=== PATIENT | male | born 1955 | race Caucasian/White ===

== ENCOUNTER 2020-06-17 23:09 | Inpatient (IN) | payer OTHER ==
[~2020-06-17] VITALS: Ht 182.9 cm; Wt 129.8 kg
[2020-06-17 23:36] LABS: BASO # 0.1 x10^3/uL (0.0-0.2); BASO % 1 % (0-3); EOS # 0.5 x10^3/uL (0.0-0.7); EOS % 3 % (0-3); HEMATOCRIT 42.5 % (39.0-53.0); HEMOGLOBIN 14.8 g/dL (13.0-17.5); LYMPH # 4.3 x10^3/uL (1.0-4.8); LYMPH % 30 % (24-48); MEAN CORPUSCULAR HEMOGLOBIN 30 pg (25-35); MEAN CORPUSCULAR HGB CONC 35 g/dL (31-37); MEAN CORPUSCULAR VOLUME 87 fL (79-100); MONO # 0.7 x10^3/uL (0.0-1.1); MONO % 5 % (0-9); NEUT # 8.7 x10^3/uL (1.8-7.7); NEUT % 61 % (31-73); PLATELET COUNT 368 x10^3/uL (140-400); RED BLOOD COUNT 4.92 x10^6/uL (4.30-5.70); RED CELL DISTRIBUTION WIDTH 13.7 % (11.5-14.5); WHITE BLOOD COUNT 14.3 x10^3/uL (4.0-11.0)
[2020-06-17 23:44] LABS: CALCIUM 9.5 mg/dL (8.5-10.1); CREATININE 0.9 mg/dL (0.7-1.3); POTASSIUM 4.2 mmol/L (3.5-5.1)
[2020-06-17] MEDS ORDERED: IV NORMAL SALINE 1000ML BAG 1,000 ML IV ONE (23:45)
[2020-06-17] MEDS ORDERED: ASPIRIN 325 MG TABLET PO ONE (23:45)
[2020-06-17 23:50] LABS: ALBUMIN 3.8 g/dL (3.4-5.0); ALBUMIN/GLOBULIN RATIO 0.9 (1.0-1.7); MAGNESIUM 1.7 mg/dL (1.8-2.4); TOTAL BILIRUBIN 0.5 mg/dL (0.2-1.0); TOTAL PROTEIN 7.9 g/dL (6.4-8.2)
--- NOTE | 2020-06-18 00:05 | PHYS DOC ---
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 Patient does report some associated chest discomfort. Patient reports taking a nitroglycerin with some improvement of symptoms. Patient reports he takes an 81 mg aspirin daily. Denies cough. Denies leg swelling or calf tenderness. Patient reports he feels it is "harder to breathe than normal ". Patient does report has had history of anxiety/panic attacks in the past. Patient reports this does not feel like a typical panic attack at this time. Review of Systems: Review of Systems: Constitutional: Denies fever or chills Eyes: Denies redness or eye pain HENT: Denies nasal congestion or sore throat Respiratory: Denies cough; reports shortness of breath Cardiovascular: Reports chest discomfort; denies palpitations GI: Denies abdominal pain, nausea, or vomiting : Denies dysuria or hematuria Musculoskeletal: Denies back pain or joint pain Integument: Denies rash or skin lesions Neurologic: Denies headache, focal weakness or sensory changes Complete systems were reviewed and found to be within normal limits, except as documented in this note. Heart Score: HEART Score for Chest Pain: HEART Score for Chest Pain Response (Comments) Value History Moderately Suspicious 1 ECG Normal 0 Age >45 - < 65 1 Risk Factors >3 Risk Factors or Hx CAD 2 Troponin < Normal Limit 0 Total 4 Risk Factors: Risk Factors: DM, Current or recent (<one month) smoker, HTN, HLP, family hi story of CAD, obesity. Risk Scores: Score 0 - 3: 2.5% MACE over next 6 weeks - Discharge Home Score 4 - 6: 20.3% MACE over next 6 weeks - Admit for Clinical Observation Score 7 - 10: 72.7% MACE over next 6 weeks - Early Invasive Strategies Current Medications: Current Medications Medications (Trade) Dose Ordered Sig/Graciela Start Time Stop Time Status Last Admin Dose Admin Aspirin (Stiven Aspirin) 325 mg 1X ONCE 06/17/20 23:45 06/17/20 23:46 DC 06/17/20 23:55 325 MG Sodium Chloride 1,000 ml @ 1,000 mls/hr 1X ONCE 06/17/20 23:45 06/18/20 00:44 06/17/20 23:54 1,000 MLS/HR Allergies: Allergies: Allergies Coded Allergies Type Severity Reaction Last Updated Verified No Known Drug Allergies 06/17/20 No Physical Exam: PE: Constitutional: Well developed, obese, no acute distress, non-toxic appearance HENT: Normocephalic, atraumatic Eyes: Conjunctiva normal, no discharge Neck: Normal range of motion, no tenderness, supple Lungs & Thorax: No respiratory distress, equal chest rise and fall Abdomen: Soft, no tenderness, obese Skin: Warm, dry, no erythema, no rash Back: No tenderness, no CVA tenderness Extremities: No tenderness, ROM intact, 1+ BLE Neurologic: Alert and oriented X 3, normal motor function, normal sensory function, no focal deficits noted Psychologic: Affect normal, judgment normal Current Patient Data: Labs: Laboratory Tests Test 06/17/20 23:25 White Blood Count 14.3 x10^3/uL (4.0-11.0) H Red Blood Count 4.92 x10^6/uL (4.30-5.70) Hemoglobin 14.8 g/dL (13.0-17.5) Hematocrit 42.5 % (39.0-53.0) Mean Corpuscular Volume 87 fL (79-100) Mean Corpuscular Hemoglobin 30 pg (25-35) Mean Corpuscular Hemoglobin Concent 35 g/dL (31-37) Red Cell Distribution Width 13.7 % (11.5-14.5) Platelet Count 368 x10^3/uL (140-400) Neutrophils (%) (Auto) 61 % (31-73) Lymphocytes (%) (Auto) 30 % (24-48) Monocytes (%) (Auto) 5 % (0-9) Eosinophils (%) (Auto) 3 % (0-3) Basophils (%) (Auto) 1 % (0-3) Neutrophils # (Auto) 8.7 x10^3/uL (1.8-7.7) H Lymphocytes # (Auto) 4.3 x10^3/uL (1.0-4.8) Monocytes # (Auto) 0.7 x10^3/uL (0.0-1.1) Eosinophils # (Auto) 0.5 x10^3/uL (0.0-0.7) Basophils # (Auto) 0.1 x10^3/uL (0.0-0.2) D-Dimer ([place]) 0.33 ug/mlFEU (0.00-0.50) Sodium Level 136 mmol/L (136-145) Potassium Level 4.2 mmol/L (3.5-5.1) Chloride Level 102 mmol/L (98-107) Carbon Dioxide Level 27 mmol/L (21-32) Anion Gap 7 (6-14) Blood Urea Nitrogen 13 mg/dL (8-26) Creatinine 0.9 mg/dL (0.7-1.3) Estimated GFR (Cockcroft-Gault) 85.0 BUN/Creatinine Ratio 14 (6-20) Glucose Level 172 mg/dL (70-99) H Calcium Level 9.5 mg/dL (8.5-10.1) Magnesium Level 1.7 mg/dL (1.8-2.4) L Total Bilirubin 0.5 mg/dL (0.2-1.0) Aspartate Amino Transferase (AST) 21 U/L (15-37) Alanine Aminotransferase (ALT) 57 U/L (16-63) Alkaline Phosphatase 81 U/L (46-116) Creatine Kinase 386 U/L (39-308) H Creatine Kinase MB (Mass) 3.6 ng/mL (0.0-3.6) Creatine Kinase MB Relative Index 0.9 % (0-4) Troponin I Quantitative < 0.017 ng/mL (0.000-0.055) AF-Qyn-N-Type Natriuretic Peptide 39 pg/mL (0-124) Total Protein 7.9 g/dL (6.4-8.2) Albumin 3.8 g/dL (3.4-5.0) Albumin/Globulin Ratio 0.9 (1.0-1.7) L Lipase 55 U/L (73-393) L Laboratory Tests 06/17/20 23:25 Laboratory Tests 06/17/20 23:25 EKG: EKG: @2337 NSR at 95bpm, NO ST elevation, QRS 102ms, QT/QTc 358/453ms, t wave inver vivian aVL, incomplete RBBB Radiology/Procedures: Radiology/Procedures: PROCEDURE: CHEST AP ONLY XR CHEST 1V 06/18/2020 12:17 AM INDICATION: Shortness of air COMPARISON: None available TECHNIQUE: Portable frontal view of the chest is provided. FINDINGS: The cardiomediastinal silhouette is within normal limits. Lungs are clear. There are no significant pleural effusions. There is no pulmonary vascular congestion. No pneumothorax. No suspicious osseous abnormality. IMPRESSION: There is no acute cardiopulmonary process. Electronically signed by: Katlyn Garcia MD (06/18/2020 12:34 AM) [facility] Course & Med Decision Making: Course & Med Decision Making Pertinent Labs and Imaging studies reviewed. (See chart for details) Patient presents with sudden report of shortness of breath upon waking this morning. EKG stable. Labs obtained and posted to chart. Troponin within normal limits. D-dimer also within normal limits. Denies known exposure to COVID-19. Patient is currently afebrile. Chest x-ray without acute process. HEART score 4. Cannot fully exclude CAD. Patient requiring observation admission for further evaluation and treatment. Discussed with Dr. Pitts (hospitalist) who is in agreement with admission. Consult to cardiology placed. Discussed findings and plan with patient, who acknowledges understanding and agreement. Luz Disclaimer: Luz Disclaimer: This electronic medical record was generated, in whole or in part, using a voice recognition dictation system. Departure Departure Impression: Primary Impression: Shortness of breath Disposition: ADMITTED INPT THIS HOSP Admitting Physician: KEVIN Epstein) Condition: STABLE Referrals: ALEXANDRA JAIN MD, MICHAEL R DO Jun 18, 2020 00:05
--- NOTE | 2020-06-18 00:37 | RAD ---
XR CHEST 1V 06/18/2020 12:17 AM INDICATION: Shortness of air COMPARISON: None available TECHNIQUE: Portable frontal view of the chest is provided. FINDINGS: The cardiomediastinal silhouette is within normal limits. Lungs are clear. There are no significant pleural effusions. There is no pulmonary vascular congestion. No pneumothora x. No suspicious osseous abnormality. IMPRESSION: There is no acute cardiopulmonary process. Electronically signed by: Katlyn Garcia MD (06/18/2020 12:34 AM) MICHEL
[2020-06-18] MEDS ORDERED: ONDANSETRON PF 4 MG/2 ML VIAL. IV PRN (01:45)
[2020-06-18] MEDS ORDERED: DEXTROSE 50% 25 GM / 50ML DISP.SYRIN. IV PRN ×3 (01:45→12:30)
[2020-06-18] MEDS ORDERED: NITROGLYCERIN SUBLINGUAL 0.4 MG BOTTLE OF 25. SL PRN (01:45)
--- NOTE | 2020-06-18 03:09 | EKG ---
[facility] [address] [place] [address] Test Date: 2020-06-17 Test Time: 23:37:35 Pat Name: JEFFREY WILLS Department: Room: Gender: M Building Maintenance Superintendent: : 1955 Requested By: WILLIAM AGUAYO Order Number: [id number] Reading MD: Leighton Moralez Measurements Intervals [place] Rate: 95 P: 36 MS: 156 QRS: -16 QRSD: 102 T: 67 QT: 358 QTc: 453 Interpretive Statements SINUS RHYTHM LEFTWARD AXIS RIGHT BUNDLE BRANCH BLOCK CONSIDER INFERIOR INFARCT ABNORMAL ECG RI6.01 No previous ECG available for comparison Electronically Signed On 06-21-2020 14:28:06 LUG LOADER by Leighton Moralez
[2020-06-18] MEDS ORDERED: MORPHINE SULFATE 4 MG/ML VIAL. IV PRN (04:00)
--- NOTE | 2020-06-18 07:31 | PDOC1 ---
History and Physical Date of Service: DOS: DATE: 06/18/20 TIME: 07:28 Chief Complaint: Chief Complain: Shortness of breath History of Present Illness: HPI: 64 year old male presents via EMS with report of suddenly awaking from sleep with shortness of breath. Patient does report some associated chest discomfort. Patient reports taking a nitroglycerin with some improvement of symptoms. Patient reports he takes an 81 mg aspirin daily. Denies cough. Denies leg swelling or calf tenderness. Patient reports he feels it is "harder to breathe than normal ". Patient does report has had history of anxiety/panic attacks in the past. Patient reports this does not feel like a typical panic attack at this time. ED course: Patient states that he did take a nitroglycerin tablet which did help his symptoms. Patient does not have any chest pain at this time. 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 Allergies: Allergies: Coded Allergies: No Known Drug Allergies (Unverified , 06/17/20) Family History: Family History: Reviewed with no relevant findings Social History: Social History: Smoking Status: Current Every Day Smoker, 1 ppd Alcohol Use: None Drug Use: None Current Medications: Current Medications Current Medications Aspirin (Stiven Aspirin) 325 mg 1X ONCE PO Last administered on 06/17/20at 23:55; Start 06/17/20 at 23:45; Stop 06/17/20 at 23:46; Status DC Sodium Chloride 1,000 ml @ 1,000 mls/hr 1X ONCE IV Last administered on 06/17/20at 23:54; Start 06/17/20 at 23:45; Stop 06/18/20 at 00:44; Status DC Ondansetron HCl (Zofran) 4 mg PRN Q8HRS PRN IV NAUSEA/VOMITING 1ST CHOICE; Start 06/18/20 at 01:45; Stop 06/19/20 at 01:44 Nitroglycerin (Nitrostat) 0.4 mg PRN Q5MIN PRN SL CHEST PAIN; Start 06/18/20 at 01:45; Stop 06/19/20 at 01:44 Insulin Human Lispro (HumaLOG) 0-5 UNITS TIDWMEALS SQ ; Start 06/18/20 at 08:00 Dextrose (Dextrose 50%-Water Syringe) 12.5 gm PRN Q15MIN PRN IV SEE COMMENTS; Start 06/18/20 at 01:45 ROS: Review of Systems Review of System REVIEW OF SYSTEMS: GENERAL: Denies weakness SKIN: No bruising, hair changes or rashes. EYES: No blurred, double or loss of vision. NOSE AND THROAT: No history of nosebleeds, hoarseness or sore throat. HEART: No history of palpitations, chest pain or shortness of breath on exertion. LUNGS: Denies cough, hemoptysis, wheezing or shortness of breath. GASTROINTESTINAL: Denies changes in appetite, nausea, vomiting, diarrhea or constipation. GENITOURINARY: No history of frequency, urgency, hesitancy or nocturia. NEUROLOGIC: Denies history of numbness, tingling, or tremor. PSYCHIATRIC: No history of panic, anxiety or depression. ENDOCRINE: No history of heat or cold intolerance, polyuria or polydipsia. EXTREMITIES: Denies joint pain, pain on walking or stiffness. Physical Exam: Vital Signs: Vital Signs Date Time Temp Pulse Resp B/P (MAP) Pulse Ox O2 Delivery O2 Flow Rate FiO2 06/18/20 06:46 96 18 170/78 (108) 95 Room Air 06/17/20 23:10 98.0 98.0 Physcial Exam: GEN: No apparent distress. Alert and oriented HEENT: Normal cephalic, atraumatic, external auditory canals are patent EYES: Extraocular muscles are intact, pupil are equally round and reactive to light and accommodation MUSCULOSKELETAL: Well developed , well nourished, good range of motion ENDOCRINE: No thyromegaly was palpated LYMPHATICS: No cervical chain or axillary nodes were noted HEMATOPOIETIC: No bruising NECK: Supple, no JVD, no thyromegaly was noted LUNGS: Clear to auscultation in all lung brooks without rhonchi or wheezing HEART: RRR, S!, S2 present. Peripheral pulses intact, no obvious murmurs noted ABDOMEN: Soft, nontender. Positive bowel sounds, no organomegaly, normal bowel sounds EXTREMITIES: Without clubbing, cyanosis, or edema. Pedal pulses intact. Negative Homans sign NEUROLOGIC: Normal speech and tone. A&O x 3, moves all extremities, no obvious focal deficits PSYCHIATRIC: Normal affect, normal mood. Stable SKIN: No ulcerations or rashes, good skin turgor, no jaundice VASCULAR: Good capillary refill, neurovascular bundle appears to be intact Labs: Labs: Laboratory Tests Test 06/17/20 23:25 06/18/20 03:53 White Blood Count 14.3 x10^3/uL (4.0-11.0) Red Blood Count 4.92 x10^6/uL (4.30-5.70) Hemoglobin 14.8 g/dL (13.0-17.5) Hematocrit 42.5 % (39.0-53.0) Mean Corpuscular Volume 87 fL (79-100) Mean Corpuscular Hemoglobin 30 pg (25-35) Mean Corpuscular Hemoglobin Concent 35 g/dL (31-37) Red Cell Distribution Width 13.7 % (11.5-14.5) Platelet Count 368 x10^3/uL (140-400) Neutrophils (%) (Auto) 61 % (31-73) Lymphocytes (%) (Auto) 30 % (24-48) Monocytes (%) (Auto) 5 % (0-9) Eosinophils (%) (Auto) 3 % (0-3) Basophils (%) (Auto) 1 % (0-3) Neutrophils # (Auto) 8.7 x10^3/uL (1.8-7.7) Lymphocytes # (Auto) 4.3 x10^3/uL (1.0-4.8) Monocytes # (Auto) 0.7 x10^3/uL (0.0-1.1) Eosinophils # (Auto) 0.5 x10^3/uL (0.0-0.7) Basophils # (Auto) 0.1 x10^3/uL (0.0-0.2) D-Dimer ([place]) 0.33 ug/mlFEU (0.00-0.50) Sodium Level 136 mmol/L (136-145) Potassium Level 4.2 mmol/L (3.5-5.1) Chloride Level 102 mmol/L (98-107) Carbon Dioxide Level 27 mmol/L (21-32) Anion Gap 7 (6-14) Blood Urea Nitrogen 13 mg/dL (8-26) Creatinine 0.9 mg/dL (0.7-1.3) Estimated GFR (Cockcroft-Gault) 85.0 BUN/Creatinine Ratio 14 (6-20) Glucose Level 172 mg/dL (70-99) Calcium Level 9.5 mg/dL (8.5-10.1) Magnesium Level 1.7 mg/dL (1.8-2.4) Total Bilirubin 0.5 mg/dL (0.2-1.0) Aspartate Amino Transf (AST/SGOT) 21 U/L (15-37) Alanine Aminotransferase (ALT/SGPT) 57 U/L (16-63) Alkaline Phosphatase 81 U/L (46-116) Creatine Kinase 386 U/L (39-308) Creatine Kinase MB (Mass) 3.6 ng/mL (0.0-3.6) Creatine Kinase MB Relative Index 0.9 % (0-4) Troponin I Quantitative < 0.017 ng/mL (0.000-0.055) < 0.017 ng/mL (0.000-0.055) UB-Vkx-J-Type Natriuretic Peptide 39 pg/mL (0-124) Total Protein 7.9 g/dL (6.4-8.2) Albumin 3.8 g/dL (3.4-5.0) Albumin/Globulin Ratio 0.9 (1.0-1.7) Lipase 55 U/L (73-393) Laboratory Tests Test 06/17/20 23:25 06/18/20 03:53 White Blood Count 14.3 x10^3/uL (4.0-11.0) Red Blood Count 4.92 x10^6/uL (4.30-5.70) Hemoglobin 14.8 g/dL (13.0-17.5) Hematocrit 42.5 % (39.0-53.0) Mean Corpuscular Volume 87 fL (79-100) Mean Corpuscular Hemoglobin 30 pg (25-35) Mean Corpuscular Hemoglobin Concent 35 g/dL (31-37) Red Cell Distribution Width 13.7 % (11.5-14.5) Platelet Count 368 x10^3/uL (140-400) Neutrophils (%) (Auto) 61 % (31-73) Lymphocytes (%) (Auto) 30 % (24-48) Monocytes (%) (Auto) 5 % (0-9) Eosinophils (%) (Auto) 3 % (0-3) Basophils (%) (Auto) 1 % (0-3) Neutrophils # (Auto) 8.7 x10^3/uL (1.8-7.7) Lymphocytes # (Auto) 4.3 x10^3/uL (1.0-4.8) Monocytes # (Auto) 0.7 x10^3/uL (0.0-1.1) Eosinophils # (Auto) 0.5 x10^3/uL (0.0-0.7) Basophils # (Auto) 0.1 x10^3/uL (0.0-0.2) D-Dimer ([place]) 0.33 ug/mlFEU (0.00-0.50) Sodium Level 136 mmol/L (136-145) Potassium Level 4.2 mmol/L (3.5-5.1) Chloride Level 102 mmol/L (98-107) Carbon Dioxide Level 27 mmol/L (21-32) Anion Gap 7 (6-14) Blood Urea Nitrogen 13 mg/dL (8-26) Creatinine 0.9 mg/dL (0.7-1.3) Estimated GFR (Cockcroft-Gault) 85.0 BUN/Creatinine Ratio 14 (6-20) Glucose Level 172 mg/dL (70-99) Calcium Level 9.5 mg/dL (8.5-10.1) Magnesium Level 1.7 mg/dL (1.8-2.4) Total Bilirubin 0.5 mg/dL (0.2-1.0) Aspartate Amino Transf (AST/SGOT) 21 U/L (15-37) Alanine Aminotransferase (ALT/SGPT) 57 U/L (16-63) Alkaline Phosphatase 81 U/L (46-116) Creatine Kinase 386 U/L (39-308) Creatine Kinase MB (Mass) 3.6 ng/mL (0.0-3.6) Creatine Kinase MB Relative Index 0.9 % (0-4) Troponin I Quantitative < 0.017 ng/mL (0.000-0.055) < 0.017 ng/mL (0.000-0.055) DO-Olq-X-Type Natriuretic Peptide 39 pg/mL (0-124) Total Protein 7.9 g/dL (6.4-8.2) Albumin 3.8 g/dL (3.4-5.0) Albumin/Globulin Ratio 0.9 (1.0-1.7) Lipase 55 U/L (73-393) Images: Images CXR Impression: 1. No acute cardiopulmonary process. Assessment/Plan Assessment/Plan Acute atypical chest pain suggestive of non-STEMI versus unstable angina Acute respiratory distress Hypermagnesemia Reactive leukocytosis Continue aspirin, consider Plavix if intermediate risk will defer this to cardiology Cardiology consulted for predischarge stress testing or left heart cath Continue nitroglycerin as needed for pain Continue beta-miguel if blood pressures allow Continue high intensity statins IV morphine as needed Consider Lovenox Maintain O2 sats between 88 to 95% Trend troponins Repeat EKG in the a.m. Continue telemetry monitoring Monitor for electrolyte abnormalities Avoid NSAIDs Lovenox for DVT prophylaxis Protonix GI prophylaxis ADA diet Full code Discussed with RN and SW Disposition pending cardiac evaluation Surrogate decision maker is the Justifications for Admission Other Justification AKIN CLEMONS MD Jun 18, 2020 07:31
[2020-06-18] MEDS ORDERED: INSULIN LISPRO 300 UNITS/3 ML VIAL. SQ SCH (08:00)
[2020-06-18] MEDS ORDERED: SENNOSIDES 8.6 MG TABLET PO PRN (12:30)
[2020-06-18] MEDS ORDERED: MORPHINE SULFATE 2 MG/ML VIAL. IV PRN (12:30)
[2020-06-18] MEDS ORDERED: ONDANSETRON PF 4 MG/2 ML VIAL. IVP PRN (12:30)
[2020-06-18] MEDS: INSULIN LISPRO 300 UNITS/3 ML VIAL. SQ SCH (12:58)
[2020-06-18] MEDS: INSULIN GLARGINE SYRINGE. SQ SCH ×2 (12:59→22:08)
[2020-06-18] MEDS: ASPIRIN ENTERIC COATED 81 MG TABLET.DR. PO SCH (12:59)
[2020-06-18] MEDS: METOPROLOL TART IMMED RELEASE 25 MG TABLET. PO SCH ×2 (13:00→20:13)
[2020-06-18] MEDS: ENOXAPARIN 40 MG/0.4 ML SYRINGE. SQ SCH (13:00)
[2020-06-18] MEDS: ALPRAZolam 0.25 MG TABLET PO PRN ×2 (14:22→20:11)
[2020-06-18] MEDS: ALBUTEROL SULFATE 2.5 MG/3 ML NEBU. NEB PRN ×2 (14:32→21:33)
--- NOTE | 2020-06-18 17:21 | PDOC2 ---
CONSULT Date of Consult Date of Consult DATE: 06/18/20 TIME: 17:14 Reason for Consult Reason for Consult: Chest pain Referring Physician Referring Physician: Dr. Pitts Identification/Chief Complaint Chief Complaint Shortness of breath Source Source: Chart review, Patient History of Present Illness Reason for Visit: The patient is a 64-year-old male who presented to the emergency room last evening with episodes of increasing shortness of breath. He also reports some episodes of chest pressure which he states was improved with a sublingual nitroglycerin. His initial EKG showed no acute ischemic changes. His chest x- ray showed no acute cardiopulmonary processes. Troponin has been negative x3. He however does have a reported history of coronary disease as well as hypertension, hyperlipidemia and diabetes mellitus. He continues to smoke 1 pack of cigarettes a day. Overnight he reports feeling better. His chest pain has resolved. His shortness of breath has improved. Past Medical History Cardiovascular: CAD, HTN, Hyperlipidemia Psych: Anxiety Endocrine: Diabetes Past Surgical History Past Surgical History: Other (Possible coronary stent.) Family History Family History: Heart Disease Social History 1 pack per day ALCOHOL: none Current Problem List Problem List Problems Medical Problems: (1) Shortness of breath Status: Acute Current Medications Current Medications Current Medications Aspirin (Stiven Aspirin) 325 mg 1X ONCE PO Last administered on 06/17/20at 23:55; Start 06/17/20 at 23:45; Stop 06/17/20 at 23:46; Status DC Sodium Chloride 1,000 ml @ 1,000 mls/hr 1X ONCE IV Last administered on 06/17/20at 23:54; Start 06/17/20 at 23:45; Stop 06/18/20 at 00:44; Status DC Ondansetron HCl (Zofran) 4 mg PRN Q8HRS PRN IV NAUSEA/VOMITING 1ST CHOICE; Start 06/18/20 at 01:45; Stop 06/19/20 at 01:44 Nitroglycerin (Nitrostat) 0.4 mg PRN Q5MIN PRN SL CHEST PAIN; Start 06/18/20 at 01:45; Stop 06/19/20 at 01:44 Insulin Human Lispro (HumaLOG) 0-5 UNITS TIDWMEALS SQ ; Start 06/18/20 at 08:00; Stop 06/18/20 at 12:21; Status DC Dextrose (Dextrose 50%-Water Syringe) 12.5 gm PRN Q15MIN PRN IV SEE COMMENTS; Start 06/18/20 at 01:45 Insulin Human Lispro (HumaLOG) 0-7 UNITS TIDWMEALS SQ Last administered on 06/18/20at 12:58; Start 06/18/20 at 17:00 Dextrose (Dextrose 50%-Water Syringe) 12.5 gm PRN Q15MIN PRN IV SEE COMMENTS; Start 06/18/20 at 12:30 Atorvastatin Calcium (Lipitor) 40 mg QHS PO ; Start 06/18/20 at 21:00 Metoprolol Tartrate (Lopressor) 12.5 mg BID PO Last administered on 06/18/20at 13:00; Start 06/18/20 at 13:00 Sennosides (Senna) 17.2 mg PRN BID PRN PO CONSTIPATION; Start 06/18/20 at 12:30 Docusate Sodium (Colace) 100 mg PRN DAILY PRN PO HARD STOOLS; Start 06/18/20 at 12:30 Ondansetron HCl (Zofran) 4 mg PRN Q6HRS PRN IVP NAUSEA/VOMITING; Start 06/18/20 at 12:30 Dextrose (Dextrose 50%-Water Syringe) 12.5 gm PRN Q15MIN PRN IV SEE COMMENTS; Start 06/18/20 at 12:30 Aspirin (Ecotrin) 81 mg DAILYWBKFT PO Last administered on 06/18/20at 12:59; Start 06/18/20 at 13:00 Enoxaparin Sodium (Lovenox 40mg Syringe) 40 mg Q24H SQ Last administered on 06/18/20at 13:00; Start 06/18/20 at 13:00 Morphine Sulfate (Morphine Sulfate) 1 mg PRN Q1HR PRN IV PAIN; Start 06/18/20 at 12:30 Morphine Sulfate (Morphine Sulfate) 2 mg PRN Q2HR PRN IV SEVERE PAIN 7-10; Start 06/18/20 at 04:00; Stop 06/19/20 at 03:59 Insulin Glargine (Lantus Syringe) 10 unit BID SQ Last administered on 06/18/20at 12:59; Start 06/18/20 at 13:00 Albuterol Sulfate (Ventolin Neb Soln) 2.5 mg PRN Q4HRS PRN NEB SHORTNESS OF BREATH Last administered on 06/18/20at 14:32; Start 06/18/20 at 14:00 Alprazolam (Xanax) 0.25 mg PRN Q8HRS PRN PO ANXIETY / AGITATION Last administered on 06/18/20at 14:22; Start 06/18/20 at 13:45 Allergies Allergies: Coded Allergies: No Known Drug Allergies (Unverified , 06/17/20) ROS Respiratory: YES: SOB with excertion Cardiovascular: yes Chest Pain Physical Exam General: No acute distress HEENT: Atraumatic Lungs: Clear to auscultation Heart: Regular rate Abdomen: Normal bowel sounds Vitals VITALS Vital Signs Date Time Temp Pulse Resp B/P (MAP) Pulse Ox O2 Delivery O2 Flow Rate FiO2 06/18/20 14:32 95 Room Air 06/18/20 13:00 110 186/86 06/18/20 06:46 18 06/17/20 23:10 98.0 98.0 Labs Labs Laboratory Tests Test 06/17/20 23:25 06/18/20 03:53 06/18/20 08:32 06/18/20 09:46 White Blood Count 14.3 x10^3/uL (4.0-11.0) Red Blood Count 4.92 x10^6/uL (4.30-5.70) Hemoglobin 14.8 g/dL (13.0-17.5) Hematocrit 42.5 % (39.0-53.0) Mean Corpuscular Volume 87 fL (79-100) Mean Corpuscular Hemoglobin 30 pg (25-35) Mean Corpuscular Hemoglobin Concent 35 g/dL (31-37) Red Cell Distribution Width 13.7 % (11.5-14.5) Platelet Count 368 x10^3/uL (140-400) Neutrophils (%) (Auto) 61 % (31-73) Lymphocytes (%) (Auto) 30 % (24-48) Monocytes (%) (Auto) 5 % (0-9) Eosinophils (%) (Auto) 3 % (0-3) Basophils (%) (Auto) 1 % (0-3) Neutrophils # (Auto) 8.7 x10^3/uL (1.8-7.7) Lymphocytes # (Auto) 4.3 x10^3/uL (1.0-4.8) Monocytes # (Auto) 0.7 x10^3/uL (0.0-1.1) Eosinophils # (Auto) 0.5 x10^3/uL (0.0-0.7) Basophils # (Auto) 0.1 x10^3/uL (0.0-0.2) D-Dimer ([place]) 0.33 ug/mlFEU (0.00-0.50) Sodium Level 136 mmol/L (136-145) Potassium Level 4.2 mmol/L (3.5-5.1) Chloride Level 102 mmol/L (98-107) Carbon Dioxide Level 27 mmol/L (21-32) Anion Gap 7 (6-14) Blood Urea Nitrogen 13 mg/dL (8-26) Creatinine 0.9 mg/dL (0.7-1.3) Estimated GFR (Cockcroft-Gault) 85.0 BUN/Creatinine Ratio 14 (6-20) Glucose Level 172 mg/dL (70-99) Calcium Level 9.5 mg/dL (8.5-10.1) Magnesium Level 1.7 mg/dL (1.8-2.4) Total Bilirubin 0.5 mg/dL (0.2-1.0) Aspartate Amino Transf (AST/SGOT) 21 U/L (15-37) Alanine Aminotransferase (ALT/SGPT) 57 U/L (16-63) Alkaline Phosphatase 81 U/L (46-116) Creatine Kinase 386 U/L (39-308) Creatine Kinase MB (Mass) 3.6 ng/mL (0.0-3.6) Creatine Kinase MB Relative Index 0.9 % (0-4) Troponin I Quantitative < 0.017 ng/mL (0.000-0.055) < 0.017 ng/mL (0.000-0.055) < 0.017 ng/mL (0.000-0.055) XP-Swp-[id number]-Type Natriuretic Peptide 39 pg/mL (0-124) Total Protein 7.9 g/dL (6.4-8.2) Albumin 3.8 g/dL (3.4-5.0) Albumin/Globulin Ratio 0.9 (1.0-1.7) Lipase 55 U/L (73-393) Glucose (Fingerstick) 158 mg/dL (70-99) Test 06/18/20 11:45 Glucose (Fingerstick) 277 mg/dL (70-99) Laboratory Tests Test 06/17/20 23:25 06/18/20 03:53 06/18/20 08:32 06/18/20 09:46 White Blood Count 14.3 x10^3/uL (4.0-11.0) Red Blood Count 4.92 x10^6/uL (4.30-5.70) Hemoglobin 14.8 g/dL (13.0-17.5) Hematocrit 42.5 % (39.0-53.0) Mean Corpuscular Volume 87 fL (79-100) Mean Corpuscular Hemoglobin 30 pg (25-35) Mean Corpuscular Hemoglobin Concent 35 g/dL (31-37) Red Cell Distribution Width 13.7 % (11.5-14.5) Platelet Count 368 x10^3/uL (140-400) Neutrophils (%) (Auto) 61 % (31-73) Lymphocytes (%) (Auto) 30 % (24-48) Monocytes (%) (Auto) 5 % (0-9) Eosinophils (%) (Auto) 3 % (0-3) Basophils (%) (Auto) 1 % (0-3) Neutrophils # (Auto) 8.7 x10^3/uL (1.8-7.7) Lymphocytes # (Auto) 4.3 x10^3/uL (1.0-4.8) Monocytes # (Auto) 0.7 x10^3/uL (0.0-1.1) Eosinophils # (Auto) 0.5 x10^3/uL (0.0-0.7) Basophils # (Auto) 0.1 x10^3/uL (0.0-0.2) D-Dimer ([place]) 0.33 ug/mlFEU (0.00-0.50) Sodium Level 136 mmol/L (136-145) Potassium Level 4.2 mmol/L (3.5-5.1) Chloride Level 102 mmol/L (98-107) Carbon Dioxide Level 27 mmol/L (21-32) Anion Gap 7 (6-14) Blood Urea Nitrogen 13 mg/dL (8-26) Creatinine 0.9 mg/dL (0.7-1.3) Estimated GFR (Cockcroft-Gault) 85.0 BUN/Creatinine Ratio 14 (6-20) Glucose Level 172 mg/dL (70-99) Calcium Level 9.5 mg/dL (8.5-10.1) Magnesium Level 1.7 mg/dL (1.8-2.4) Total Bilirubin 0.5 mg/dL (0.2-1.0) Aspartate Amino Transf (AST/SGOT) 21 U/L (15-37) Alanine Aminotransferase (ALT/SGPT) 57 U/L (16-63) Alkaline Phosphatase 81 U/L (46-116) Creatine Kinase 386 U/L (39-308) Creatine Kinase MB (Mass) 3.6 ng/mL (0.0-3.6) Creatine Kinase MB Relative Index 0.9 % (0-4) Troponin I Quantitative < 0.017 ng/mL (0.000-0.055) < 0.017 ng/mL (0.000-0.055) < 0.017 ng/mL (0.000-0.055) KN-Fbv-W-Type Natriuretic Peptide 39 pg/mL (0-124) Total Protein 7.9 g/dL (6.4-8.2) Albumin 3.8 g/dL (3.4-5.0) Albumin/Globulin Ratio 0.9 (1.0-1.7) Lipase 55 U/L (73-393) Glucose (Fingerstick) 158 mg/dL (70-99) Test 06/18/20 11:45 Glucose (Fingerstick) 277 mg/dL (70-99) Images Images Chest x-ray with no acute processes. Assessment/Plan Assessment/Plan 1. Acute respiratory distress. Patient has been feeling better overnight. Chest x-ray has no acute changes. He is a 1 pack/day smoker as noted above. We will continue present treatments and gradually increase activity. 2. Episode of chest pain. Patient reports it was improved with nitroglycerin. EKG shows no acute ischemic changes. Troponin has been negative x3. He however does report a history of a coronary intervention. At this time we will continue present medications. We will attempt to obtain old records. Would increase activity. Possible outpatient ischemia work-up based on clinical course. 3. History of hyperlipidemia. Continue medications and check lab. 4. Hypertension. Under better control this morning. We will continue to monitor. 5. Tobacco abuse. Discussed with the patient. 6. Diabetes mellitus. As per the primary service. Thank you for allowing us to participate in the care of your patient. ALEXANDRA JAIN MD Jun 18, 2020 17:21
[2020-06-18] MEDS: ATORVASTATIN CALCIUM 40 MG TABLET. PO SCH (20:11)
[2020-06-18 20:14] VITALS: BP 166/52
[2020-06-18 23:00] VITALS: BP 150/63
[2020-06-19] MEDS: ALBUTEROL SULFATE 2.5 MG/3 ML NEBU. NEB PRN ×4 (03:00→16:18)
[2020-06-19 03:05] VITALS: BP 155/68
[2020-06-19 04:54] LABS: BASO # 0.2 x10^3/uL (0.0-0.2); BASO % 1 % (0-3); EOS # 0.2 x10^3/uL (0.0-0.7); EOS % 2 % (0-3); HEMATOCRIT 39.1 % (39.0-53.0); HEMOGLOBIN 13.4 g/dL (13.0-17.5); LYMPH % 37 % (24-48); MEAN CORPUSCULAR HEMOGLOBIN 30 pg (25-35); MEAN CORPUSCULAR HGB CONC 34 g/dL (31-37); MEAN CORPUSCULAR VOLUME 87 fL (79-100); MONO # 0.9 x10^3/uL (0.0-1.1); MONO % 5 % (0-9); NEUT # 9.1 x10^3/uL (1.8-7.7); NEUT % 55 % (31-73); PLATELET COUNT 329 x10^3/uL (140-400); RED BLOOD COUNT 4.51 x10^6/uL (4.30-5.70); RED CELL DISTRIBUTION WIDTH 13.9 % (11.5-14.5); WHITE BLOOD COUNT 16.4 x10^3/uL (4.0-11.0)
[2020-06-19 05:19] LABS: CALCIUM 9.1 mg/dL (8.5-10.1); CREATININE 0.8 mg/dL (0.7-1.3); GFR 97.3; PHOSPHORUS 3.1 mg/dL (2.6-4.7); POTASSIUM 3.8 mmol/L (3.5-5.1)
[2020-06-19 05:33] LABS: CHOLESTEROL/HDL RATIO 3.4
[2020-06-19 07:00] VITALS: BP 154/85
[2020-06-19] MEDS: INSULIN LISPRO 300 UNITS/3 ML VIAL. SQ SCH ×3 (08:00→17:52)
[2020-06-19] MEDS: ASPIRIN ENTERIC COATED 81 MG TABLET.DR. PO SCH (08:36)
[2020-06-19] MEDS: ALPRAZolam 0.25 MG TABLET PO PRN ×2 (08:36→15:58)
[2020-06-19] MEDS: METOPROLOL TART IMMED RELEASE 25 MG TABLET. PO SCH ×2 (08:37→21:38)
[2020-06-19] MEDS: INSULIN GLARGINE SYRINGE. SQ SCH ×2 (09:00→21:45)
[2020-06-19 11:00] VITALS: BP 158/67
--- NOTE | 2020-06-19 11:05 | PDOC ---
PROGRESS NOTES Date of Service: DATE: 06/19/20 TIME: 11:05 Chief Complaint Chief Complaint Images: Images CXR Impression: 1. No acute cardiopulmonary process. Assessment/Plan Acute atypical chest pain suggestive OF ANGINA Acute respiratory distress, COPD EXAC, ACUTE/ pneumonitis Hypermagnesemia Reactive leukocytosis ACUTE hypoxic resp failure COPD TOBACCO ABUSE DISORDER ANXIETY diabetes labile hypertension PLAN Continue aspirin, consider Plavix if intermediate risk will defer to cardiology Cardiology consulted for predischarge stress testing or left heart cath Continue nitroglycerin as needed for pain Continue beta-miguel if blood pressures allow Continue high intensity statins IV morphine as needed Consider Lovenox Maintain O2 sats between 88 to 95% Trend troponins Repeat EKG in the a.m. Continue telemetry monitoring Monitor for electrolyte abnormalities Avoid NSAIDs Lovenox for DVT prophylaxis Protonix GI prophylaxis ADA diet Full code outpatient ischemia work-up based on clinical course. Discussed with RN Disposition pending cardiac evaluation abg Surrogate decision maker is the CT CHEST BUSPAR 10MG PO BID BUDESONIDE 0.5 MG BID NEBS iv doxy 100mg bid lisinopril 2.5 mg po bid FLP a1c tobacco cessation neede, education provided 7 min has 50 plus pk yr smoking hx 37 MIN pt exam, chart review, > 50% of time spent with exam, chart review, pt care coordination Justifications for Admission Justifications for Admission Other Justification History of Present Illness History of Present Illness Chief Complaint: Chief Complain: Shortness of breath History of Present Illness: HPI: 64 year old male presents via EMS with report of suddenly awaking from sleep with shortness of breath. Patient does report some associated chest discomfort. Patient reports taking a nitroglycerin with some improvement of symptoms. Patient reports he takes an 81 mg aspirin daily. Denies cough. Denies leg swelling or calf tenderness. Patient reports he feels it is "harder to breathe than normal ". Patient does report has had history of anxiety/panic attacks in the past. Patient reports this does not feel like a typical panic attack at this time. ED course: Patient states that he did take a nitroglycerin tablet which did help his symptoms. 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 Alert and oriented HEENT: Normal cephalic, atraumatic, external auditory canals are patent EYES: Extraocular muscles are intact, pupil are equally round and reactive to light and accommodation MUSCULOSKELETAL: Well developed , well nourished, good range of motion ENDOCRINE: No thyromegaly was palpated LYMPHATICS: No cervical chain or axillary nodes were noted HEMATOPOIETIC: No bruising NECK: Supple, no JVD, no thyromegaly was noted LUNGS: Clear to auscultation in all lung brooks without rhonchi or wheezing, DIMINISHED HEART: RRR, S!, S2 present. Peripheral pulses intact, no obvious murmurs noted ABDOMEN: Soft, nontender. Positive bowel sounds, no organomegaly, normal bowel sounds EXTREMITIES: Without clubbing, cyanosis, or edema. Pedal pulses intact. Negative Homans sign NEUROLOGIC: Normal speech and tone. A&O x 3, moves all extremities, no obvious focal deficits PSYCHIATRIC: Normal affect, normal mood. Stable SKIN: No ulcerations or rashes, good skin turgor, no jaundice VASCULAR: Good capillary refill, neurovascular bundle appears to be intact General: Alert, Oriented X3, Cooperative, No acute distress Heart: Regular rate Abdomen: Normal bowel sounds, No tenderness Labs LABS XR CHEST 1V 06/18/2020 12:17 AM INDICATION: Shortness of air COMPARISON: None available TECHNIQUE: Portable frontal view of the chest is provided. FINDINGS: The cardiomediastinal silhouette is within normal limits. Lungs are clear. There are no significant pleural effusions. There is no pulmonary vascular congestion. No pneumothorax. No suspicious osseous abnormality. IMPRESSION: There is no acute cardiopulmonary process. Electronically signed by: Sandip Garcia MD (06/18/2020 12:34 AM) [facility] DICTATED and SIGNED BY: SANDIP GARCIA MD DATE: 06/18/20 [id number] Laboratory Tests Test 06/18/20 11:45 06/18/20 18:07 06/18/20 20:45 06/19/20 04:00 Glucose (Fingerstick) 277 mg/dL (70-99) 209 mg/dL (70-99) 234 mg/dL (70-99) White Blood Count 16.4 x10^3/uL (4.0-11.0) Red Blood Count 4.51 x10^6/uL (4.30-5.70) Hemoglobin 13.4 g/dL (13.0-17.5) Hematocrit 39.1 % (39.0-53.0) Mean Corpuscular Volume 87 fL (79-100) Mean Corpuscular Hemoglobin 30 pg (25-35) Mean Corpuscular Hemoglobin Concent 34 g/dL (31-37) Red Cell Distribution Width 13.9 % (11.5-14.5) Platelet Count 329 x10^3/uL (140-400) Neutrophils (%) (Auto) 55 % (31-73) Lymphocytes (%) (Auto) 37 % (24-48) Monocytes (%) (Auto) 5 % (0-9) Eosinophils (%) (Auto) 2 % (0-3) Basophils (%) (Auto) 1 % (0-3) Neutrophils # (Auto) 9.1 x10^3/uL (1.8-7.7) Lymphocytes # (Auto) 6.0 x10^3/uL (1.0-4.8) Monocytes # (Auto) 0.9 x10^3/uL (0.0-1.1) Eosinophils # (Auto) 0.2 x10^3/uL (0.0-0.7) Basophils # (Auto) 0.2 x10^3/uL (0.0-0.2) Sodium Level 137 mmol/L (136-145) Potassium Level 3.8 mmol/L (3.5-5.1) Chloride Level 100 mmol/L (98-107) Carbon Dioxide Level 28 mmol/L (21-32) Anion Gap 9 (6-14) Blood Urea Nitrogen 14 mg/dL (8-26) Creatinine 0.8 mg/dL (0.7-1.3) Estimated GFR (Cockcroft-Gault) 97.3 Glucose Level 192 mg/dL (70-99) Calcium Level 9.1 mg/dL (8.5-10.1) Phosphorus Level 3.1 mg/dL (2.6-4.7) Magnesium Level 2.0 mg/dL (1.8-2.4) Triglycerides Level 265 mg/dL (0-150) Cholesterol Level 88 mg/dL (0-200) LDL Cholesterol, Calculated 9 mg/dL (0-100) VLDL Cholesterol, Calculated 53 mg/dL (0-40) Non-HDL Cholesterol Calculated 62 mg/dL (0-129) HDL Cholesterol 26 mg/dL (40-60) Cholesterol/HDL Ratio 3.4 Test 06/19/20 07:49 Glucose (Fingerstick) 219 mg/dL (70-99) Assessment and Plan Assessmemt and Plan Problems Medical Problems: (1) Shortness of breath Status: Acute Comment Review of Relevant I have reviewed the following items areil (where applicable) has been applied. Labs Laboratory Tests Test 06/17/20 23:25 06/18/20 03:53 06/18/20 08:32 06/18/20 09:46 White Blood Count 14.3 x10^3/uL (4.0-11.0) Red Blood Count 4.92 x10^6/uL (4.30-5.70) Hemoglobin 14.8 g/dL (13.0-17.5) Hematocrit 42.5 % (39.0-53.0) Mean Corpuscular Volume 87 fL (79-100) Mean Corpuscular Hemoglobin 30 pg (25-35) Mean Corpuscular Hemoglobin Concent 35 g/dL (31-37) Red Cell Distribution Width 13.7 % (11.5-14.5) Platelet Count 368 x10^3/uL (140-400) Neutrophils (%) (Auto) 61 % (31-73) Lymphocytes (%) (Auto) 30 % (24-48) Monocytes (%) (Auto) 5 % (0-9) Eosinophils (%) (Auto) 3 % (0-3) Basophils (%) (Auto) 1 % (0-3) Neutrophils # (Auto) 8.7 x10^3/uL (1.8-7.7) Lymphocytes # (Auto) 4.3 x10^3/uL (1.0-4.8) Monocytes # (Auto) 0.7 x10^3/uL (0.0-1.1) Eosinophils # (Auto) 0.5 x10^3/uL (0.0-0.7) Basophils # (Auto) 0.1 x10^3/uL (0.0-0.2) D-Dimer ([place]) 0.33 ug/mlFEU (0.00-0.50) Sodium Level 136 mmol/L (136-145) Potassium Level 4.2 mmol/L (3.5-5.1) Chloride Level 102 mmol/L (98-107) Carbon Dioxide Level 27 mmol/L (21-32) Anion Gap 7 (6-14) Blood Urea Nitrogen 13 mg/dL (8-26) Creatinine 0.9 mg/dL (0.7-1.3) Estimated GFR (Cockcroft-Gault) 85.0 BUN/Creatinine Ratio 14 (6-20) Glucose Level 172 mg/dL (70-99) Calcium Level 9.5 mg/dL (8.5-10.1) Magnesium Level 1.7 mg/dL (1.8-2.4) Total Bilirubin 0.5 mg/dL (0.2-1.0) Aspartate Amino Transf (AST/SGOT) 21 U/L (15-37) Alanine Aminotransferase (ALT/SGPT) 57 U/L (16-63) Alkaline Phosphatase 81 U/L (46-116) Creatine Kinase 386 U/L (39-308) Creatine Kinase MB (Mass) 3.6 ng/mL (0.0-3.6) Creatine Kinase MB Relative Index 0.9 % (0-4) Troponin I Quantitative < 0.017 ng/mL (0.000-0.055) < 0.017 ng/mL (0.000-0.055) < 0.017 ng/mL (0.000-0.055) YW-Eqk-U-Type Natriuretic Peptide 39 pg/mL (0-124) Total Protein 7.9 g/dL (6.4-8.2) Albumin 3.8 g/dL (3.4-5.0) Albumin/Globulin Ratio 0.9 (1.0-1.7) Lipase 55 U/L (73-393) Glucose (Fingerstick) 158 mg/dL (70-99) Test 06/18/20 11:45 06/18/20 18:07 06/18/20 20:45 06/19/20 04:00 Glucose (Fingerstick) 277 mg/dL (70-99) 209 mg/dL (70-99) 234 mg/dL (70-99) White Blood Count 16.4 x10^3/uL (4.0-11.0) Red Blood Count 4.51 x10^6/uL (4.30-5.70) Hemoglobin 13.4 g/dL (13.0-17.5) Hematocrit 39.1 % (39.0-53.0) Mean Corpuscular Volume 87 fL (79-100) Mean Corpuscular Hemoglobin 30 pg (25-35) Mean Corpuscular Hemoglobin Concent 34 g/dL (31-37) Red Cell Distribution Width 13.9 % (11.5-14.5) Platelet Count 329 x10^3/uL (140-400) Neutrophils (%) (Auto) 55 % (31-73) Lymphocytes (%) (Auto) 37 % (24-48) Monocytes (%) (Auto) 5 % (0-9) Eosinophils (%) (Auto) 2 % (0-3) Basophils (%) (Auto) 1 % (0-3) Neutrophils # (Auto) 9.1 x10^3/uL (1.8-7.7) Lymphocytes # (Auto) 6.0 x10^3/uL (1.0-4.8) Monocytes # (Auto) 0.9 x10^3/uL (0.0-1.1) Eosinophils # (Auto) 0.2 x10^3/uL (0.0-0.7) Basophils # (Auto) 0.2 x10^3/uL (0.0-0.2) Sodium Level 137 mmol/L (136-145) Potassium Level 3.8 mmol/L (3.5-5.1) Chloride Level 100 mmol/L (98-107) Carbon Dioxide Level 28 mmol/L (21-32) Anion Gap 9 (6-14) Blood Urea Nitrogen 14 mg/dL (8-26) Creatinine 0.8 mg/dL (0.7-1.3) Estimated GFR (Cockcroft-Gault) 97.3 Glucose Level 192 mg/dL (70-99) Calcium Level 9.1 mg/dL (8.5-10.1) Phosphorus Level 3.1 mg/dL (2.6-4.7) Magnesium Level 2.0 mg/dL (1.8-2.4) Triglycerides Level 265 mg/dL (0-150) Cholesterol Level 88 mg/dL (0-200) LDL Cholesterol, Calculated 9 mg/dL (0-100) VLDL Cholesterol, Calculated 53 mg/dL (0-40) Non-HDL Cholesterol Calculated 62 mg/dL (0-129) HDL Cholesterol 26 mg/dL (40-60) Cholesterol/HDL Ratio 3.4 Test 06/19/20 07:49 Glucose (Fingerstick) 219 mg/dL (70-99) Laboratory Tests Test 06/18/20 11:45 06/18/20 18:07 06/18/20 20:45 06/19/20 04:00 Glucose (Fingerstick) 277 mg/dL (70-99) 209 mg/dL (70-99) 234 mg/dL (70-99) White Blood Count 16.4 x10^3/uL (4.0-11.0) Red Blood Count 4.51 x10^6/uL (4.30-5.70) Hemoglobin 13.4 g/dL (13.0-17.5) Hematocrit 39.1 % (39.0-53.0) Mean Corpuscular Volume 87 fL (79-100) Mean Corpuscular Hemoglobin 30 pg (25-35) Mean Corpuscular Hemoglobin Concent 34 g/dL (31-37) Red Cell Distribution Width 13.9 % (11.5-14.5) Platelet Count 329 x10^3/uL (140-400) Neutrophils (%) (Auto) 55 % (31-73) Lymphocytes (%) (Auto) 37 % (24-48) Monocytes (%) (Auto) 5 % (0-9) Eosinophils (%) (Auto) 2 % (0-3) Basophils (%) (Auto) 1 % (0-3) Neutrophils # (Auto) 9.1 x10^3/uL (1.8-7.7) Lymphocytes # (Auto) 6.0 x10^3/uL (1.0-4.8) Monocytes # (Auto) 0.9 x10^3/uL (0.0-1.1) Eosinophils # (Auto) 0.2 x10^3/uL (0.0-0.7) Basophils # (Auto) 0.2 x10^3/uL (0.0-0.2) Sodium Level 137 mmol/L (136-145) Potassium Level 3.8 mmol/L (3.5-5.1) Chloride Level 100 mmol/L (98-107) Carbon Dioxide Level 28 mmol/L (21-32) Anion Gap 9 (6-14) Blood Urea Nitrogen 14 mg/dL (8-26) Creatinine 0.8 mg/dL (0.7-1.3) Estimated GFR (Cockcroft-Gault) 97.3 Glucose Level 192 mg/dL (70-99) Calcium Level 9.1 mg/dL (8.5-10.1) Phosphorus Level 3.1 mg/dL (2.6-4.7) Magnesium Level 2.0 mg/dL (1.8-2.4) Triglycerides Level 265 mg/dL (0-150) Cholesterol Level 88 mg/dL (0-200) LDL Cholesterol, Calculated 9 mg/dL (0-100) VLDL Cholesterol, Calculated 53 mg/dL (0-40) Non-HDL Cholesterol Calculated 62 mg/dL (0-129) HDL Cholesterol 26 mg/dL (40-60) Cholesterol/HDL Ratio 3.4 Test 06/19/20 07:49 Glucose (Fingerstick) 219 mg/dL (70-99) Medications Current Medications Aspirin (Stiven Aspirin) 325 mg 1X ONCE PO Last administered on 06/17/20at 23:55; Start 06/17/20 at 23:45; Stop 06/17/20 at 23:46; Status DC Sodium Chloride 1,000 ml @ 1,000 mls/hr 1X ONCE IV Last administered on 06/17/20at 23:54; Start 06/17/20 at 23:45; Stop 06/18/20 at 00:44; Status DC Ondansetron HCl (Zofran) 4 mg PRN Q8HRS PRN IV NAUSEA/VOMITING 1ST CHOICE; Start 06/18/20 at 01:45; Stop 06/19/20 at 01:44; Status DC Nitroglycerin (Nitrostat) 0.4 mg PRN Q5MIN PRN SL CHEST PAIN; Start 06/18/20 at 01:45; Stop 06/19/20 at 01:44; Status DC Insulin Human Lispro (HumaLOG) 0-5 UNITS TIDWMEALS SQ ; Start 06/18/20 at 08:00; Stop 06/18/20 at 12:21; Status DC Dextrose (Dextrose 50%-Water Syringe) 12.5 gm PRN Q15MIN PRN IV SEE COMMENTS; Start 06/18/20 at 01:45 Insulin Human Lispro (HumaLOG) 0-7 UNITS TIDWMEALS SQ Last administered on 06/18at 12:58; Start 06/18/20 at 17:00 Dextrose (Dextrose 50%-Water Syringe) 12.5 gm PRN Q15MIN PRN IV SEE COMMENTS; Start 06/18/20 at 12:30 Atorvastatin Calcium (Lipitor) 40 mg QHS PO Last administered on 06/18/20at 20:11; Start 06/18/20 at 21:00 Metoprolol Tartrate (Lopressor) 12.5 mg BID PO Last administered on 06/19/20at 08:37; Start 06/18/20 at 13:00 Sennosides (Senna) 17.2 mg PRN BID PRN PO CONSTIPATION; Start 06/18/20 at 12:30 Docusate Sodium (Colace) 100 mg PRN DAILY PRN PO HARD STOOLS; Start 06/18/20 at 12:30 Ondansetron HCl (Zofran) 4 mg PRN Q6HRS PRN IVP NAUSEA/VOMITING; Start 06/18/20 at 12:30 Dextrose (Dextrose 50%-Water Syringe) 12.5 gm PRN Q15MIN PRN IV SEE COMMENTS; Start 06/18/20 at 12:30 Aspirin (Ecotrin) 81 mg [id number] PO Last administered on 06/19/20at 08:36; Start 06/18/20 at 13:00 Enoxaparin Sodium (Lovenox 40mg Syringe) 40 mg Q24H SQ Last administered on 06/18/20at 13:00; Start 06/18/20 at 13:00 Morphine Sulfate (Morphine Sulfate) 1 mg PRN Q1HR PRN IV PAIN; Start 06/18/20 at 12:30 Morphine Sulfate (Morphine Sulfate) 2 mg PRN Q2HR PRN IV SEVERE PAIN 7-10; Start 06/18/20 at 04:00; Stop 06/19/20 at 04:00; Status DC Insulin Glargine (Lantus Syringe) 10 unit BID SQ Last administered on 06/18/20at 22:08; Start 06/18/20 at 13:00 Albuterol Sulfate (Ventolin Neb Soln) 2.5 mg PRN Q4HRS PRN NEB SHORTNESS OF BREATH Last administered on 06/19/20at 08:12; Start 06/18/20 at 14:00 Alprazolam (Xanax) 0.25 mg PRN Q8HRS PRN PO ANXIETY / AGITATION Last administered on 06/19/20at 08:36; Start 06/18/20 at 13:45 Vitals/I & O Vital Sign - Last 24 Hours 06/18/20 06/18/20 06/18/20 06/18/20 11:46 12:46 13:00 14:32 Pulse 84 102 110 Resp B/P (MAP) 145/55 (85) 186/86 (119) 186/86 Pulse Ox 100 97 95 O2 Delivery Room Air Room Air Room Air 06/18/20 06/18/20 06/18/20 06/18/20 14:46 16:46 18:16 20:13 Pulse 96 88 87 82 Resp B/P (MAP) 174/58 (96) 146/58 (87) 179/65 (103) 166/52 Pulse Ox 98 98 98 O2 Delivery Room Air Room Air Room Air 06/18/20 06/18/20 06/18/20 06/18/20 20:14 20:15 21:37 23:00 Temp 97.6 97.1 97.6 97.1 Pulse 85 85 Resp B/P (MAP) 166/52 (90) 150/63 (92) Pulse Ox 94 96 96 O2 Delivery Nasal Cannula Nasal Cannula Nasal Cannula Nasal Cannula O2 Flow Rate 3.0 2.0 3.0 3.0 06/19/20 06/19/20 06/19/20 06/19/20 03:00 03:05 07:00 07:30 Temp 97.7 98.1 97.7 98.1 Pulse 98 85 Resp 21 18 B/P (MAP) 155/68 (97) 154/85 (108) Pulse Ox 98 96 O2 Delivery Nasal Cannula Nasal Cannula Nasal Cannula Nasal Cannula O2 Flow Rate 2.0 3.0 3.0 3.0 06/19/20 06/19/20 08:13 08:37 Pulse 85 B/P (MAP) 154/85 Pulse Ox 98 O2 Delivery Nasal Cannula O2 Flow Rate 2.0 Intake and Output 06/18/20 06/18/20 06/19/20 15:00 23:00 07:00 Intake Total 100 ml Output Total 1000 ml 700 ml Balance -1000 ml 100 ml -700 ml Justicifation of Admission Dx: Justifications for Admission: Justification of Admission Dx: Yes Acute COPD Exacerbation: Acute COPD Exacerbation Comments: ACUTE HYPOXIC RESP FAILURE ELAINE GAVIRIA MD Jun 19, 2020 11:05
[2020-06-19] MEDS: ENOXAPARIN 40 MG/0.4 ML SYRINGE. SQ SCH (12:25)
[2020-06-19 15:00] VITALS: BP 131/53
[2020-06-19 15:03] LABS: BILIRUBIN,URINE NEGATIVE (NEG); CLARITY,URINE CLEAR; COLOR,URINE YELLOW; NITRITE,URINE NEGATIVE (NEG); PH,URINE 5.5 (<5.0-8.0); PROTEIN,URINE NEGATIVE (NEG-TRACE); UROBILINOGEN,URINE 0.2 mg/dL (0.2 mg/dL)
[2020-06-19 15:11] LABS: BACTERIA,URINE 0 /HPF (0-FEW); RBC,URINE 0 /HPF (0-2); WBC,URINE OCC /HPF (0-4)
--- NOTE | 2020-06-19 15:19 | PDOC ---
PROGRESS NOTES Date of Service DATE: 06/19/20 TIME: 15:17 Subjective Subjective Patient seen and examined Objective Objective Vital Signs Date Time Temp Pulse Resp B/P (MAP) Pulse Ox O2 Delivery O2 Flow Rate FiO2 06/19/20 11:37 95 Nasal Cannula 2.0 06/19/20 11:00 97.7 89 18 158/67 (97) 97.7 Intake and Output 06/19/20 06:59 Intake Total 100 ml Output Total 1700 ml Balance -1600 ml Intake Oral 100 ml Output Urine Total 1700 ml # Voids 3 Physical Exam Abdomen: Normal bowel sounds Heart: Regular rate General: mild distress Lungs: Other (Mildly decreased breath sounds) Assessment Assessment Problems Medical Problems: (1) Shortness of breath Status: Acute 1. Acute respiratory distress. The patient is improved today.. Chest x-ray has no acute changes. He is a 1 pack/day smoker as noted above. We will continue present treatments and gradually increase activity. 2. Episode of chest pain. Patient reports it was improved with nitroglycerin. EKG shows no acute ischemic changes. Troponin has been negative x3. He however does report a history of a coronary intervention. No chest pain overnight. Increase activity. We will check an echocardiogram tomorrow. Probable outpatient ischemia work-up. 3. History of hyperlipidemia. We will repeat a lipid profile in the morning. LDL is less than 10 on today's lab. 4. Hypertension. Under better control this morning. We will continue to monitor. 5. Tobacco abuse. Discussed with the patient. 6. Diabetes mellitus. As per the primary service. Comment Review of Relevant I have reviewed the following items ariel (where applicable) has been applied. Labs Laboratory Tests Test 06/17/20 23:25 06/18/20 03:53 06/18/20 08:32 06/18/20 09:46 White Blood Count 14.3 x10^3/uL (4.0-11.0) Red Blood Count 4.92 x10^6/uL (4.30-5.70) Hemoglobin 14.8 g/dL (13.0-17.5) Hematocrit 42.5 % (39.0-53.0) Mean Corpuscular Volume 87 fL (79-100) Mean Corpuscular Hemoglobin 30 pg (25-35) Mean Corpuscular Hemoglobin Concent 35 g/dL (31-37) Red Cell Distribution Width 13.7 % (11.5-14.5) Platelet Count 368 x10^3/uL (140-400) Neutrophils (%) (Auto) 61 % (31-73) Lymphocytes (%) (Auto) 30 % (24-48) Monocytes (%) (Auto) 5 % (0-9) Eosinophils (%) (Auto) 3 % (0-3) Basophils (%) (Auto) 1 % (0-3) Neutrophils # (Auto) 8.7 x10^3/uL (1.8-7.7) Lymphocytes # (Auto) 4.3 x10^3/uL (1.0-4.8) Monocytes # (Auto) 0.7 x10^3/uL (0.0-1.1) Eosinophils # (Auto) 0.5 x10^3/uL (0.0-0.7) Basophils # (Auto) 0.1 x10^3/uL (0.0-0.2) D-Dimer ([place]) 0.33 ug/mlFEU (0.00-0.50) Sodium Level 136 mmol/L (136-145) Potassium Level 4.2 mmol/L (3.5-5.1) Chloride Level 102 mmol/L (98-107) Carbon Dioxide Level 27 mmol/L (21-32) Anion Gap 7 (6-14) Blood Urea Nitrogen 13 mg/dL (8-26) Creatinine 0.9 mg/dL (0.7-1.3) Estimated GFR (Cockcroft-Gault) 85.0 BUN/Creatinine Ratio 14 (6-20) Glucose Level 172 mg/dL (70-99) Calcium Level 9.5 mg/dL (8.5-10.1) Magnesium Level 1.7 mg/dL (1.8-2.4) Total Bilirubin 0.5 mg/dL (0.2-1.0) Aspartate Amino Transf (AST/SGOT) 21 U/L (15-37) Alanine Aminotransferase (ALT/SGPT) 57 U/L (16-63) Alkaline Phosphatase 81 U/L (46-116) Creatine Kinase 386 U/L (39-308) Creatine Kinase MB (Mass) 3.6 ng/mL (0.0-3.6) Creatine Kinase MB Relative Index 0.9 % (0-4) Troponin I Quantitative < 0.017 ng/mL (0.000-0.055) < 0.017 ng/mL (0.000-0.055) < 0.017 ng/mL (0.000-0.055) SQ-Idw-W-Type Natriuretic Peptide 39 pg/mL (0-124) Total Protein 7.9 g/dL (6.4-8.2) Albumin 3.8 g/dL (3.4-5.0) Albumin/Globulin Ratio 0.9 (1.0-1.7) Lipase 55 U/L (73-393) Glucose (Fingerstick) 158 mg/dL (70-99) Test 06/18/20 11:45 06/18/20 18:07 06/18/20 20:45 06/19/20 04:00 Glucose (Fingerstick) 277 mg/dL (70-99) 209 mg/dL (70-99) 234 mg/dL (70-99) White Blood Count 16.4 x10^3/uL (4.0-11.0) Red Blood Count 4.51 x10^6/uL (4.30-5.70) Hemoglobin 13.4 g/dL (13.0-17.5) Hematocrit 39.1 % (39.0-53.0) Mean Corpuscular Volume 87 fL (79-100) Mean Corpuscular Hemoglobin 30 pg (25-35) Mean Corpuscular Hemoglobin Concent 34 g/dL (31-37) Red Cell Distribution Width 13.9 % (11.5-14.5) Platelet Count 329 x10^3/uL (140-400) Neutrophils (%) (Auto) 55 % (31-73) Lymphocytes (%) (Auto) 37 % (24-48) Monocytes (%) (Auto) 5 % (0-9) Eosinophils (%) (Auto) 2 % (0-3) Basophils (%) (Auto) 1 % (0-3) Neutrophils # (Auto) 9.1 x10^3/uL (1.8-7.7) Lymphocytes # (Auto) 6.0 x10^3/uL (1.0-4.8) Monocytes # (Auto) 0.9 x10^3/uL (0.0-1.1) Eosinophils # (Auto) 0.2 x10^3/uL (0.0-0.7) Basophils # (Auto) 0.2 x10^3/uL (0.0-0.2) Sodium Level 137 mmol/L (136-145) Potassium Level 3.8 mmol/L (3.5-5.1) Chloride Level 100 mmol/L (98-107) Carbon Dioxide Level 28 mmol/L (21-32) Anion Gap 9 (6-14) Blood Urea Nitrogen 14 mg/dL (8-26) Creatinine 0.8 mg/dL (0.7-1.3) Estimated GFR (Cockcroft-Gault) 97.3 Glucose Level 192 mg/dL (70-99) Calcium Level 9.1 mg/dL (8.5-10.1) Phosphorus Level 3.1 mg/dL (2.6-4.7) Magnesium Level 2.0 mg/dL (1.8-2.4) Triglycerides Level 265 mg/dL (0-150) Cholesterol Level 88 mg/dL (0-200) LDL Cholesterol, Calculated 9 mg/dL (0-100) VLDL Cholesterol, Calculated 53 mg/dL (0-40) Non-HDL Cholesterol Calculated 62 mg/dL (0-129) HDL Cholesterol 26 mg/dL (40-60) Cholesterol/HDL Ratio 3.4 Test 06/19/20 07:49 06/19/20 12:11 06/19/20 14:22 Glucose (Fingerstick) 219 mg/dL (70-99) 231 mg/dL (70-99) Urine Collection Type Unknown Urine Color Yellow Urine Clarity Clear Urine pH 5.5 (<5.0-8.0) Urine Specific [place] 1.025 (1.000-1.030) Urine Protein Negative mg/dL (NEG-TRACE) Urine Glucose (UA) >=1000 mg/dL (NEG) Urine Ketones (Stick) Negative mg/dL (NEG) Urine Blood Negative (NEG) Urine Nitrite Negative (NEG) Urine Bilirubin Negative (NEG) Urine Urobilinogen Dipstick 0.2 mg/dL (0.2 mg/dL) Urine Leukocyte Esterase Negative (NEG) Urine RBC 0 /HPF (0-2) Urine WBC Occ /HPF (0-4) Urine Bacteria 0 /HPF (0-FEW) Urine Mucus Mod /LPF Laboratory Tests Test 1/2/21 18:07 06/18/20 20:45 06/19/20 04:00 06/19/20 07:49 Glucose (Fingerstick) 209 mg/dL (70-99) 234 mg/dL (70-99) 219 mg/dL (70-99) White Blood Count 16.4 x10^3/uL (4.0-11.0) Red Blood Count 4.51 x10^6/uL (4.30-5.70) Hemoglobin 13.4 g/dL (13.0-17.5) Hematocrit 39.1 % (39.0-53.0) Mean Corpuscular Volume 87 fL (79-100) Mean Corpuscular Hemoglobin 30 pg (25-35) Mean Corpuscular Hemoglobin Concent 34 g/dL (31-37) Red Cell Distribution Width 13.9 % (11.5-14.5) Platelet Count 329 x10^3/uL (140-400) Neutrophils (%) (Auto) 55 % (31-73) Lymphocytes (%) (Auto) 37 % (24-48) Monocytes (%) (Auto) 5 % (0-9) Eosinophils (%) (Auto) 2 % (0-3) Basophils (%) (Auto) 1 % (0-3) Neutrophils # (Auto) 9.1 x10^3/uL (1.8-7.7) Lymphocytes # (Auto) 6.0 x10^3/uL (1.0-4.8) Monocytes # (Auto) 0.9 x10^3/uL (0.0-1.1) Eosinophils # (Auto) 0.2 x10^3/uL (0.0-0.7) Basophils # (Auto) 0.2 x10^3/uL (0.0-0.2) Sodium Level 137 mmol/L (136-145) Potassium Level 3.8 mmol/L (3.5-5.1) Chloride Level 100 mmol/L (98-107) Carbon Dioxide Level 28 mmol/L (21-32) Anion Gap 9 (6-14) Blood Urea Nitrogen 14 mg/dL (8-26) Creatinine 0.8 mg/dL (0.7-1.3) Estimated GFR (Cockcroft-Gault) 97.3 Glucose Level 192 mg/dL (70-99) Calcium Level 9.1 mg/dL (8.5-10.1) Phosphorus Level 3.1 mg/dL (2.6-4.7) Magnesium Level 2.0 mg/dL (1.8-2.4) Triglycerides Level 265 mg/dL (0-150) Cholesterol Level 88 mg/dL (0-200) LDL Cholesterol, Calculated 9 mg/dL (0-100) VLDL Cholesterol, Calculated 53 mg/dL (0-40) Non-HDL Cholesterol Calculated 62 mg/dL (0-129) HDL Cholesterol 26 mg/dL (40-60) Cholesterol/HDL Ratio 3.4 Test 06/19/20 12:11 06/19/20 14:22 Glucose (Fingerstick) 231 mg/dL (70-99) Urine Collection Type Unknown Urine Color Yellow Urine Clarity Clear Urine pH 5.5 (<5.0-8.0) Urine Specific [place] 1.025 (1.000-1.030) Urine Protein Negative mg/dL (NEG-TRACE) Urine Glucose (UA) >=1000 mg/dL (NEG) Urine Ketones (Stick) Negative mg/dL (NEG) Urine Blood Negative (NEG) Urine Nitrite Negative (NEG) Urine Bilirubin Negative (NEG) Urine Urobilinogen Dipstick 0.2 mg/dL (0.2 mg/dL) Urine Leukocyte Esterase Negative (NEG) Urine RBC 0 /HPF (0-2) Urine WBC Occ /HPF (0-4) Urine Bacteria 0 /HPF (0-FEW) Urine Mucus Mod /LPF Medications Current Medications Aspirin (Bacterioscan Aspirin) 325 mg 1X ONCE PO Last administered on 06/17/20at 23:55; Start 06/17/20 at 23:45; Stop 06/17/20 at 23:46; Status DC Sodium Chloride 1,000 ml @ 1,000 mls/hr 1X ONCE IV Last administered on 06/17/20at 23:54; Start 06/17/20 at 23:45; Stop 06/18/20 at 00:44; Status DC Ondansetron HCl (Zofran) 4 mg PRN Q8HRS PRN IV NAUSEA/VOMITING 1ST CHOICE; Start 06/18/20 at 01:45; Stop 06/19/20 at 01:44; Status DC Nitroglycerin (Nitrostat) 0.4 mg PRN Q5MIN PRN SL CHEST PAIN; Start 06/18/20 at 01:45; Stop 06/19/20 at 01:44; Status DC Insulin Human Lispro (HumaLOG) 0-5 UNITS TIDWMEALS SQ ; Start 06/18/20 at 08:00; Stop 06/18/20 at 12:21; Status DC Dextrose (Dextrose 50%-Water Syringe) 12.5 gm PRN Q15MIN PRN IV SEE COMMENTS; Start 06/18/20 at 01:45 Insulin Human Lispro (HumaLOG) 0-7 UNITS TIDWMEALS SQ Last administered on 06/19/20at 12:29; Start 06/18/20 at 17:00 Dextrose (Dextrose 50%-Water Syringe) 12.5 gm PRN Q15MIN PRN IV SEE COMMENTS; Start 06/18/20 at 12:30 Atorvastatin Calcium (Lipitor) 40 mg QHS PO Last administered on 06/18/20at 20:11; Start 06/18/20 at 21:00 Metoprolol Tartrate (Lopressor) 12.5 mg BID PO Last administered on 06/19/20at 08:37; Start 06/18/20 at 13:00 Sennosides (Senna) 17.2 mg PRN BID PRN PO CONSTIPATION; Start 06/18/20 at 12:30 Docusate Sodium (Colace) 100 mg PRN DAILY PRN PO HARD STOOLS; Start 06/18/20 at 12:30 Ondansetron HCl (Zofran) 4 mg PRN Q6HRS PRN IVP NAUSEA/VOMITING; Start 06/18/20 at 12:30 Dextrose (Dextrose 50%-Water Syringe) 12.5 gm PRN Q15MIN PRN IV SEE COMMENTS; Start 06/18/20 at 12:30 Aspirin (Ecotrin) 81 mg [id number] PO Last administered on 06/19/20at 08:36; Start 06/18/20 at 13:00 Enoxaparin Sodium (Lovenox 40mg Syringe) 40 mg Q24H SQ Last administered on 06/19/20at 12:25; Start 06/18/20 at 13:00 Morphine Sulfate (Morphine Sulfate) 1 mg PRN Q1HR PRN IV PAIN; Start 06/18/20 at 12:30 Morphine Sulfate (Morphine Sulfate) 2 mg PRN Q2HR PRN IV SEVERE PAIN 7-10; Start 06/18/20 at 04:00; Stop 06/19/20 at 04:00; Status DC Insulin Glargine (Lantus Syringe) 10 unit BID SQ Last administered on 06/18/20at 22:08; Start 06/18/20 at 13:00 Albuterol Sulfate (Ventolin Neb Soln) 2.5 mg PRN Q4HRS PRN NEB SHORTNESS OF BREATH Last administered on 06/19/20at 11:37; Start 06/18/20 at 14:00 Alprazolam (Xanax) 0.25 mg PRN Q8HRS PRN PO ANXIETY / AGITATION Last administered on 06/19/20at 08:36; Start 06/18/20 at 13:45 Buspirone HCl (Buspar) 10 mg BID PRN PO ANXIETY; Start 06/19/20 at 14:45 Budesonide (Pulmicort) 0.5 mg RTBID NEB ; Start 06/19/20 at 20:00 Doxycycline Hyclate 100 mg/ Dextrose 100 ml @ 50 mls/hr Q12HR IV ; Start 06/19/20 at 15:00 Lisinopril (Prinivil) 2.5 mg BID PO ; Start 06/19/20 at 15:00 Vitals/I & O Vital Sign - Last 24 Hours 06/18/20 06/18/20 06/18/20 06/18/20 16:46 18:16 20:13 20:14 Temp 97.6 97.6 Pulse 88 87 82 85 Resp 22 B/P (MAP) 146/58 (87) 179/65 (103) 166/52 166/52 (90) Pulse Ox 98 98 94 O2 Delivery Room Air Room Air Nasal Cannula O2 Flow Rate 3.0 06/18/20 06/18/20 06/18/20 06/19/20 20:15 21:37 23:00 03:00 Temp 97.1 97.1 Pulse 85 Resp 20 B/P (MAP) 150/63 (92) Pulse Ox 96 96 O2 Delivery Nasal Cannula Nasal Cannula Nasal Cannula Nasal Cannula O2 Flow Rate 2.0 3.0 3.0 2.0 06/19/20 06/19/20 06/19/20 06/19/20 03:05 07:00 07:30 08:13 Temp 97.7 98.1 97.7 98.1 Pulse 98 85 Resp 21 18 B/P (MAP) 155/68 (97) 154/85 (108) Pulse Ox 98 96 98 O2 Delivery Nasal Cannula Nasal Cannula Nasal Cannula Nasal Cannula O2 Flow Rate 3.0 3.0 3.0 2.0 06/19/20 06/19/20 06/19/20 08:37 11:00 11:37 Temp 97.7 97.7 Pulse 85 89 Resp 18 B/P (MAP) 154/85 158/67 (97) Pulse Ox 98 95 O2 Delivery Nasal Cannula Nasal Cannula O2 Flow Rate 3.0 2.0 Intake and Output 06/18/20 06/18/20 06/19/20 14:59 22:59 06:59 Intake Total 100 ml Output Total 1000 ml 700 ml Balance -1000 ml 100 ml -700 ml Justifications for Admission Chest Pain Indications Is patient at high risk?: Yes Justification for admission: Patient is high risk based on hemodynamic instability, CHF, abnormal EKG/ECG/cardiac biomarkers/physical exam findings in context of chest pain persisting despite parenteral analgesics & optimal anti-anginal therapy. Other Justification ALEXANDRA JAIN MD Jun 19, 2020 15:19
[2020-06-19] MEDS: busPIRone 10 MG TABLET. PO PRN (15:58)
[2020-06-19] MEDS: LISINOPRIL 5 MG TABLET. PO SCH ×2 (15:59→21:39)
[2020-06-19] MEDS: DOXYCYCLINE HYCLATE 100 MG in IV DEXTROSE 5% 100ML 100 ML IV SCH ×2 (16:00→23:29)
[2020-06-19 16:31] LABS: BASE EXCESS ABG 3 mmol/L (-3-3); HCO3 ABG 27 mmol/L (21-28); PCO2 ABG 42 mmHg (35-46); PO2 ABG 78 mmHg (65-108); SAT O2 ABG 95 % (92-99)
--- NOTE | 2020-06-19 16:53 | RAD ---
EXAM: Chest CT without intravenous contrast. HISTORY: Hypoxia. TECHNIQUE: Computed tomographic images of the chest were obtained without contrast. Multiplanar refor matting was performed. *One or more of the following individualized dose reduction techniques were utilized for this examina tion: 1. Automated exposure control. 2. Adjustment of the mA and/or kV according to patient size. 3. Use of iterative reconstruction technique. COMPARISON: None. FINDINGS: The heart is normal in size. The aorta is normal in caliber. There is a 2.8 cm right thyroi d nodule. No pathologically enlarged mediastinal or hilar lymph node is seen. There is calcified athe rosclerotic plaque involving the coronary arteries. There is no pneumothorax or pleural effusion. The re is a 2.0 cm ill-defined groundglass opacity within the left upper lobe abutting the left pleural f issure. There is a similar smaller groundglass opacity within the anterior medial left upper lobe. Th is is best seen on coronal reconstructed images. There is hepatomegaly and hepatic steatosis, partial ly included on the [id number]. There is left adrenal gland calcification likely due to prior hemor rhage. There is no acute finding involving the abdomen. There are degenerative changes involving the spine. There is no suspicious or acute osseous finding. IMPRESSION: 1. Small groundglass opacities within the left upper lobe, likely infectious or inflammatory in etiol ogy. Follow-up can be performed in 6 months to confirm resolution. 2. 2.8 cm right thyroid nodule. This can be assessed with a thyroid sonogram. 3. Hepatomegaly and hepatic steatosis. Electronically signed by: Swetha Corey MD (06/19/2020 4:51 PM) [facility]
[2020-06-19 19:05] VITALS: BP 150/57
[2020-06-19] MEDS: BUDESONIDE 0.5 MG/2 ML NEBU. NEB SCH (20:05)
[2020-06-19] MEDS: DOCUSATE SODIUM 100 MG CAPSULE. PO PRN (21:39)
[2020-06-19] MEDS: ATORVASTATIN CALCIUM 40 MG TABLET. PO SCH (21:39)
[2020-06-19] MEDS: ACETAMINOPHEN 325 MG TABLET. PO PRN (21:58)
[2020-06-19 23:40] VITALS: BP 131/62
[2020-06-20] MEDS: ALPRAZolam 0.25 MG TABLET PO PRN ×3 (00:11→18:02)
[2020-06-20] MEDS: busPIRone 10 MG TABLET. PO PRN ×3 (00:11→20:45)
[2020-06-20] MEDS: ALBUTEROL SULFATE 2.5 MG/3 ML NEBU. NEB PRN ×6 (00:50→19:50)
[2020-06-20 03:00] VITALS: BP 133/65
[2020-06-20] MEDS: ACETAMINOPHEN 325 MG TABLET. PO PRN ×4 (04:17→20:45)
[2020-06-20 07:00] VITALS: BP 137/65
[2020-06-20] MEDS: BUDESONIDE 0.5 MG/2 ML NEBU. NEB SCH ×2 (07:06→19:50)
[2020-06-20] MEDS: DOCUSATE SODIUM 100 MG CAPSULE. PO PRN (08:35)
[2020-06-20] MEDS: ASPIRIN ENTERIC COATED 81 MG TABLET.DR. PO SCH (08:36)
[2020-06-20] MEDS: METOPROLOL TART IMMED RELEASE 25 MG TABLET. PO SCH ×2 (08:36→20:44)
[2020-06-20] MEDS: LISINOPRIL 5 MG TABLET. PO SCH ×2 (08:36→20:45)
[2020-06-20] MEDS: DOXYCYCLINE HYCLATE 100 MG in IV DEXTROSE 5% 100ML 100 ML IV SCH ×2 (08:38→20:45)
[2020-06-20] MEDS: INSULIN GLARGINE SYRINGE. SQ SCH ×2 (08:42→20:56)
[2020-06-20] MEDS: INSULIN LISPRO 300 UNITS/3 ML VIAL. SQ SCH ×3 (08:43→18:02)
[2020-06-20 08:51] LABS: BASO # 0.1 x10^3/uL (0.0-0.2); BASO % 1 % (0-3); EOS # 0.2 x10^3/uL (0.0-0.7); EOS % 2 % (0-3); HEMATOCRIT 38.9 % (39.0-53.0); LYMPH # 4.4 x10^3/uL (1.0-4.8); LYMPH % 34 % (24-48); MEAN CORPUSCULAR HEMOGLOBIN 29 pg (25-35); MEAN CORPUSCULAR HGB CONC 33 g/dL (31-37); MEAN CORPUSCULAR VOLUME 87 fL (79-100); MONO # 0.7 x10^3/uL (0.0-1.1); MONO % 6 % (0-9); NEUT # 7.7 x10^3/uL (1.8-7.7); NEUT % 58 % (31-73); PLATELET COUNT 331 x10^3/uL (140-400); RED BLOOD COUNT 4.45 x10^6/uL (4.30-5.70); RED CELL DISTRIBUTION WIDTH 13.5 % (11.5-14.5); WHITE BLOOD COUNT 13.2 x10^3/uL (4.0-11.0)
[2020-06-20 09:14] LABS: CHOLESTEROL/HDL RATIO 2.7
--- NOTE | 2020-06-20 10:56 | PDOC ---
[employer] PROGRESS NOTE Date of Service DOS: DATE: 06/20/20 TIME: 10:54 Chief Complaint Chief Complaint Images: Images CXR Impression: 1. No acute cardiopulmonary process. Assessment/Plan Acute atypical chest pain suggestive OF ANGINA Possible community-acquired pneumonia Acute respiratory distress COPD EXAC ACUTE pneumonitis Hypermagnesemia Reactive leukocytosis ACUTE hypoxic resp failure COPD TOBACCO ABUSE DISORDER ANXIETY diabetes labile hypertension PLAN Continue aspirin, consider Plavix if intermediate risk will defer to cardiology Cardiology consulted for predischarge stress testing or left heart cath Continue nitroglycerin as needed for pain Continue beta-miguel if blood pressures allow Continue high intensity statins IV morphine as needed Consider Lovenox Maintain O2 sats between 88 to 95% Trend troponins Repeat EKG in the a.m. Continue telemetry monitoring Monitor for electrolyte abnormalities Avoid NSAIDs Lovenox for DVT prophylaxis Protonix GI prophylaxis ADA diet Full code outpatient ischemia work-up based on clinical course. Discussed with RN Disposition pending cardiac evaluation abg Surrogate decision maker is the CT CHEST BUSPAR 10MG PO BID BUDESONIDE 0.5 MG BID NEBS iv doxy 100mg bid lisinopril 2.5 mg po bid FLP a1c tobacco cessation neede, education provided 7 min has 50 plus pk yr smoking hx 37 MIN pt exam, chart review, > 50% of time spent with exam, chart review, pt care coordination Justifications for Admission Justifications for Admission Other Justification History of Present Illness History of Present Illness 64 year old male presents via EMS with report of suddenly awaking from sleep with shortness of breath. Patient does report some associated chest discomfort. Patient reports taking a nitroglycerin with some improvement of symptoms. Patient reports he takes an 81 mg aspirin daily. Denies cough. Denies leg swelling or calf tenderness. Patient reports he feels it is "harder to breathe than normal ". Patient does report has had history of anxiety/panic attacks in the past. Patient reports this does not feel like a typical panic attack at this time. ED course: Patient states that he did take a nitroglycerin tablet which did help his symptoms. follows at [facility], HX RCA STENT 10 YRS AGO [facility] 06/20/2020 Patient seen and evaluated bedside. Still with some shortness of breath, denies chest pain. Echocardiogram and 6-minute walk pending. Discussed with RN and child welfare social worker. Vitals/I&O Vitals/I&O: Vital Signs Date Time Temp Pulse Resp B/P (MAP) Pulse Ox O2 Delivery O2 Flow Rate FiO2 06/20/20 08:36 80 06/20/20 08:00 Nasal Cannula 2.0 06/20/20 07:08 96 06/20/20 07:00 98.0 20 137/65 (89) 98.0 I & O 06/19/20 06/19/20 06/20/20 15:00 23:00 07:00 Intake Total 180 ml 760 ml 1920 ml Balance 180 ml 760 ml 1920 ml Physical Exam General: No acute distress Heart: Regular rate Lungs: Crackles Abdomen: Normal bowel sounds Extremities: No clubbing, No cyanosis Skin: No rashes, No breakdown Labs Labs: Laboratory Tests Test 06/19/20 12:11 06/19/20 14:22 06/19/20 16:15 06/19/20 16:47 Glucose (Fingerstick) 231 mg/dL (70-99) 244 mg/dL (70-99) Urine Collection Type Unknown Urine Color Yellow Urine Clarity Clear Urine pH 5.5 (<5.0-8.0) Urine Specific [place] 1.025 (1.000-1.030) Urine Protein Negative mg/dL (NEG-TRACE) Urine Glucose (UA) >=1000 mg/dL (NEG) Urine Ketones (Stick) Negative mg/dL (NEG) Urine Blood Negative (NEG) Urine Nitrite Negative (NEG) Urine Bilirubin Negative (NEG) Urine Urobilinogen Dipstick 0.2 mg/dL (0.2 mg/dL) Urine Leukocyte Esterase Negative (NEG) Urine RBC 0 /HPF (0-2) Urine WBC Occ /HPF (0-4) Urine Bacteria 0 /HPF (0-FEW) Urine Mucus Mod /LPF O2 Saturation 95 % (92-99) Arterial Blood pH 7.43 (7.35-7.45) Arterial Blood pCO2 at Patient Temp 42 mmHg (35-46) Arterial Blood pO2 at Patient Temp 78 mmHg (65-108) Arterial Blood HCO3 27 mmol/L (21-28) Arterial Blood Base Excess 3 mmol/L (-3-3) FiO2 2 lpm nc Test 06/19/20 20:57 06/20/20 07:38 1/4/21 07:40 Glucose (Fingerstick) 175 mg/dL (70-99) 239 mg/dL (70-99) White Blood Count 13.2 x10^3/uL (4.0-11.0) Red Blood Count 4.45 x10^6/uL (4.30-5.70) Hemoglobin 13.0 g/dL (13.0-17.5) Hematocrit 38.9 % (39.0-53.0) Mean Corpuscular Volume 87 fL (79-100) Mean Corpuscular Hemoglobin 29 pg (25-35) Mean Corpuscular Hemoglobin Concent 33 g/dL (31-37) Red Cell Distribution Width 13.5 % (11.5-14.5) Platelet Count 331 x10^3/uL (140-400) Neutrophils (%) (Auto) 58 % (31-73) Lymphocytes (%) (Auto) 34 % (24-48) Monocytes (%) (Auto) 6 % (0-9) Eosinophils (%) (Auto) 2 % (0-3) Basophils (%) (Auto) 1 % (0-3) Neutrophils # (Auto) 7.7 x10^3/uL (1.8-7.7) Lymphocytes # (Auto) 4.4 x10^3/uL (1.0-4.8) Monocytes # (Auto) 0.7 x10^3/uL (0.0-1.1) Eosinophils # (Auto) 0.2 x10^3/uL (0.0-0.7) Basophils # (Auto) 0.1 x10^3/uL (0.0-0.2) Triglycerides Level 169 mg/dL (0-150) Cholesterol Level 74 mg/dL (0-200) LDL Cholesterol, Calculated 13 mg/dL (0-100) VLDL Cholesterol, Calculated 34 mg/dL (0-40) Non-HDL Cholesterol Calculated 47 mg/dL (0-129) HDL Cholesterol 27 mg/dL (40-60) Cholesterol/HDL Ratio 2.7 Assessment and Plan Assessmemt and Plan Problems Medical Problems: (1) Shortness of breath Status: Acute Comment Review of Relevant I have reviewed the following items ariel (where applicable) has been applied. Medications: Current Medications Medications (Trade) Dose Ordered Sig/Graciela Route PRN Reason Start Time Stop Time Status Last Admin Dose Admin Buspirone HCl (Buspar) 10 mg BID PRN PO ANXIETY 06/19/20 14:45 06/20/20 08:36 Budesonide (Pulmicort) 0.5 mg RTBID NEB 06/19/20 20:00 06/20/20 07:06 Doxycycline Hyclate 100 mg/ Dextrose 100 ml @ 50 mls/hr Q12HR IV 06/19/20 15:00 06/20/20 08:38 Lisinopril (Prinivil) 2.5 mg BID PO 06/19/20 15:00 06/20/20 08:36 Acetaminophen (Tylenol) 650 mg PRN Q6HRS PRN PO MILD PAIN / TEMP > 100.3'F 06/19/20 22:00 06/20/20 09:39 Justifications for Admission Chest Pain Indications Is patient at high risk?: Yes Justification for admission: Patient is high risk based on hemodynamic instability, CHF, abnormal EKG/ECG/cardiac biomarkers/physical exam findings in context of chest pain persisting despite parenteral analgesics & optimal anti-anginal therapy. Other Justification EDV ALMEIDA MD Jun 20, 2020 10:56
[2020-06-20 11:00] VITALS: BP 146/63
--- NOTE | 2020-06-20 11:13 | NUR ---
SS following for discharge planning. SS reviewed pt chart and discussed with pt RN. Pt is from home and is currently requiring oxygen at two liters nasal canula. Pt on IV Doxycycline. ECHO today. Pt has no home oxygen. SS will continue to follow for discharge planning.
--- NOTE | 2020-06-20 11:58 | PDOC ---
CARDIO Progress Notes Date and Time Date of Service 06/20/19 Time of Evaluation 1200 Subjective Subjective: No Chest Pain, No shortness of breath Vitals Vitals Vital Signs Date Time Temp Pulse Resp B/P (MAP) Pulse Ox O2 Delivery O2 Flow Rate FiO2 06/20/20 11:28 94 Nasal Cannula 2.0 06/20/20 11:00 97.8 78 22 146/63 (90) 97.8 Weight Weight [ ] Input and Output Intake and Output Intake and Output 06/20/20 07:00 Intake Total 2860 ml Balance 2860 ml Intake Oral 2860 ml # Voids 7 Laboratory Labs Laboratory Tests Test 06/19/20 12:11 06/19/20 14:22 06/19/20 16:15 06/19/20 16:47 Glucose (Fingerstick) 231 mg/dL (70-99) 244 mg/dL (70-99) Urine Collection Type Unknown Urine Color Yellow Urine Clarity Clear Urine pH 5.5 (<5.0-8.0) Urine Specific [place] 1.025 (1.000-1.030) Urine Protein Negative mg/dL (NEG-TRACE) Urine Glucose (UA) >=1000 mg/dL (NEG) Urine Ketones (Stick) Negative mg/dL (NEG) Urine Blood Negative (NEG) Urine Nitrite Negative (NEG) Urine Bilirubin Negative (NEG) Urine Urobilinogen Dipstick 0.2 mg/dL (0.2 mg/dL) Urine Leukocyte Esterase Negative (NEG) Urine RBC 0 /HPF (0-2) Urine WBC Occ /HPF (0-4) Urine Bacteria 0 /HPF (0-FEW) Urine Mucus Mod /LPF O2 Saturation 95 % (92-99) Arterial Blood pH 7.43 (7.35-7.45) Arterial Blood pCO2 at Patient Temp 42 mmHg (35-46) Arterial Blood pO2 at Patient Temp 78 mmHg (65-108) Arterial Blood HCO3 27 mmol/L (21-28) Arterial Blood Base Excess 3 mmol/L (-3-3) FiO2 2 lpm nc Test 06/19/20 20:57 06/20/20 07:38 06/20/20 07:40 06/20/20 11:27 Glucose (Fingerstick) 175 mg/dL (70-99) 239 mg/dL (70-99) 236 mg/dL (70-99) White Blood Count 13.2 x10^3/uL (4.0-11.0) Red Blood Count 4.45 x10^6/uL (4.30-5.70) Hemoglobin 13.0 g/dL (13.0-17.5) Hematocrit 38.9 % (39.0-53.0) Mean Corpuscular Volume 87 fL (79-100) Mean Corpuscular Hemoglobin 29 pg (25-35) Mean Corpuscular Hemoglobin Concent 33 g/dL (31-37) Red Cell Distribution Width 13.5 % (11.5-14.5) Platelet Count 331 x10^3/uL (140-400) Neutrophils (%) (Auto) 58 % (31-73) Lymphocytes (%) (Auto) 34 % (24-48) Monocytes (%) (Auto) 6 % (0-9) Eosinophils (%) (Auto) 2 % (0-3) Basophils (%) (Auto) 1 % (0-3) Neutrophils # (Auto) 7.7 x10^3/uL (1.8-7.7) Lymphocytes # (Auto) 4.4 x10^3/uL (1.0-4.8) Monocytes # (Auto) 0.7 x10^3/uL (0.0-1.1) Eosinophils # (Auto) 0.2 x10^3/uL (0.0-0.7) Basophils # (Auto) 0.1 x10^3/uL (0.0-0.2) Triglycerides Level 169 mg/dL (0-150) Cholesterol Level 74 mg/dL (0-200) LDL Cholesterol, Calculated 13 mg/dL (0-100) VLDL Cholesterol, Calculated 34 mg/dL (0-40) Non-HDL Cholesterol Calculated 47 mg/dL (0-129) HDL Cholesterol 27 mg/dL (40-60) Cholesterol/HDL Ratio 2.7 Assessment Assessment 1. Acute respiratory distress 2. Chest pain, atypical. AMI ruled out. EKG without significant acute changes 3. CAD s/p PCI/stent to the RCA. 4. H/o hyperlipidemia; LDL 13 5. Hypertension; mildly elevated 6. COPD with ongoing tobaccoism; reinforced cessation . 7. Diabetes, II 8. Anxiety, panic attacks Recommendations Increase lisinopril for rate control Secondary prevention measures; ASA, statin, BB therapy Echo to assess LV systolic function Outpatient ischemic evaluation Justicifation of Admission Dx: Justifications for Admission: Justification of Admission Dx: Yes Acute COPD Exacerbation: Acute COPD Exacerbation HOLLAND ARMIJO APRN Jun 20, 2020 11:58
[2020-06-20] MEDS: ENOXAPARIN 40 MG/0.4 ML SYRINGE. SQ SCH (12:07)
[2020-06-20 15:00] VITALS: BP 174/79
[2020-06-20] MEDS ORDERED: diphenhydrAMINE HCL 25 MG CAPSULE PO PRN (18:45)
[2020-06-20 19:31] VITALS: BP 169/84
[2020-06-20] MEDS: ATORVASTATIN CALCIUM 40 MG TABLET. PO SCH (20:45)
[2020-06-20 22:48] VITALS: BP 139/56
[2020-06-21] MEDS: ALBUTEROL SULFATE 2.5 MG/3 ML NEBU. NEB PRN ×2 (00:55→07:17)
[2020-06-21 01:17] LABS: HEMOGLOBIN A1C 10.1 % (4.8-5.6)
[2020-06-21] MEDS: ACETAMINOPHEN 325 MG TABLET. PO PRN ×2 (02:29→09:42)
[2020-06-21] MEDS: ALPRAZolam 0.25 MG TABLET PO PRN ×2 (02:29→10:59)
[2020-06-21 03:02] VITALS: BP 155/62
[2020-06-21 07:00] VITALS: BP 148/69
[2020-06-21] MEDS: BUDESONIDE 0.5 MG/2 ML NEBU. NEB SCH (07:17)
--- NOTE | 2020-06-21 08:11 | PDOC ---
[employer] PROGRESS NOTE Date of Service DOS: DATE: 06/21/20 TIME: 08:05 Chief Complaint Chief Complaint Images: Images CXR Impression: 1. No acute cardiopulmonary process. Assessment/Plan Acute atypical chest pain suggestive OF ANGINA Possible community-acquired pneumonia Acute respiratory distress COPD EXAC ACUTE pneumonitis Hypermagnesemia Reactive leukocytosis ACUTE hypoxic resp failure COPD TOBACCO ABUSE DISORDER ANXIETY diabetes labile hypertension PLAN Continue aspirin, consider Plavix if intermediate risk will defer to cardiology Cardiology consulted for predischarge stress testing or left heart cath Continue nitroglycerin as needed for pain Continue beta-miguel if blood pressures allow Continue high intensity statins IV morphine as needed Consider Lovenox Maintain O2 sats between 88 to 95% Trend troponins Repeat EKG in the a.m. Continue telemetry monitoring Monitor for electrolyte abnormalities Avoid NSAIDs Lovenox for DVT prophylaxis Protonix GI prophylaxis ADA diet Full code outpatient ischemia work-up based on clinical course. Discussed with RN Disposition pending cardiac evaluation abg Surrogate decision maker is the CT CHEST BUSPAR 10MG PO BID BUDESONIDE 0.5 MG BID NEBS iv doxy 100mg bid lisinopril 2.5 mg po bid FLP a1c tobacco cessation neede, education provided 7 min has 50 plus pk yr smoking hx 37 MIN pt exam, chart review, > 50% of time spent with exam, chart review, pt care coordination Justifications for Admission Justifications for Admission Other Justification History of Present Illness History of Present Illness 64 year old male presents via EMS with report of suddenly awaking from sleep with shortness of breath. Patient does report some associated chest discomfort. Patient reports taking a nitroglycerin with some improvement of symptoms. Patient reports he takes an 81 mg aspirin daily. Denies cough. Denies leg swelling or calf tenderness. Patient reports he feels it is "harder to breathe than normal ". Patient does report has had history of anxiety/panic attacks in the past. Patient reports this does not feel like a typical panic attack at this time. ED course: Patient states that he did take a nitroglycerin tablet which did help his symptoms. follows at [facility], HX RCA STENT 10 YRS AGO [facility] 06/21/2020 Patient seen and evaluated. Had echocardiogram yesterday, read still pending. Cardiology recommending outpatient ischemic evaluation. May discharge patient today, as he does not have an oxygen requirement. Greater than 30 minutes was spent managing the discharge this patient. 06/20/2020 Patient seen and evaluated bedside. Still with some shortness of breath, denies chest pain. Echocardiogram and 6-minute walk pending. Discussed with RN and social work lecturer. Vitals/I&O Vitals/I&O: Vital Signs Date Time Temp Pulse Resp B/P (MAP) Pulse Ox O2 Delivery O2 Flow Rate FiO2 06/21/20 07:18 95 Room Air 06/21/20 07:00 97.7 96 18 148/69 (95) 97.7 06/20/20 20:00 2.0 I & O 06/20/20 06/20/20 06/21/20 15:00 23:00 07:00 Intake Total 600 ml 575 ml 0 ml Balance 600 ml 575 ml 0 ml Physical Exam General: No acute distress Heart: Regular rate Lungs: Crackles Abdomen: Normal bowel sounds Extremities: No clubbing, No cyanosis Skin: No rashes, No breakdown Labs Labs: Laboratory Tests Test 06/20/20 11:27 06/20/20 16:52 06/20/20 20:39 06/21/20 06:54 Glucose (Fingerstick) 236 mg/dL (70-99) 169 mg/dL (70-99) 194 mg/dL (70-99) 201 mg/dL (70-99) Assessment and Plan Assessmemt and Plan Problems Medical Problems: (1) Shortness of breath Status: Acute Comment Review of Relevant I have reviewed the following items ariel (where applicable) has been applied. Medications: Current Medications Medications (Trade) Dose Ordered Sig/Graciela Route PRN Reason Start Time Stop Time Status Last Admin Dose Admin Diphenhydramine HCl (Benadryl) 25 mg PRN QHS PRN PO INSOMNIA 06/20/20 18:45 06/20/20 20:44 Justifications for Admission Chest Pain Indications Is patient at high risk?: Yes Justification for admission: Patient is high risk based on hemodynamic instability, CHF, abnormal EKG/ECG/cardiac biomarkers/physical exam findings in context of chest pain persisting despite parenteral analgesics & optimal anti-anginal therapy. Other Justification DEV ALMEIDA MD Jun 21, 2020 08:11
[2020-06-21] MEDS: busPIRone 10 MG TABLET. PO PRN (08:41)
[2020-06-21] MEDS: ASPIRIN ENTERIC COATED 81 MG TABLET.DR. PO SCH (08:41)
[2020-06-21] MEDS: METOPROLOL TART IMMED RELEASE 25 MG TABLET. PO SCH (08:42)
[2020-06-21] MEDS: DOXYCYCLINE HYCLATE 100 MG in IV DEXTROSE 5% 100ML 100 ML IV SCH (08:43)
[2020-06-21] MEDS: INSULIN GLARGINE SYRINGE. SQ SCH (08:51)
[2020-06-21] MEDS: INSULIN LISPRO 300 UNITS/3 ML VIAL. SQ SCH ×2 (08:51→13:38)
[2020-06-21] MEDS ORDERED: LISINOPRIL 20 MG TABLET PO SCH (09:00)
[2020-06-21] MEDS ORDERED: NICOTINE 21MG PATCH. TD PRN (09:30)
[2020-06-21 10:21] VITALS: BP 147/74
--- NOTE | 2020-06-21 11:59 | PDOC ---
CARDIO Progress Notes Date and Time Date of Service 06/21/2019 Time of Evaluation 1150 Subjective Subjective: No Chest Pain, No shortness of breath, No Palpitations Vitals Vitals Vital Signs Date Time Temp Pulse Resp B/P (MAP) Pulse Ox O2 Delivery O2 Flow Rate FiO2 06/21/20 10:21 97.9 84 18 147/74 (98) 95 Room Air 97.9 06/20/20 20:00 2.0 Weight Weight [ ] Input and Output Intake and Output Intake and Output 06/21/20 07:00 Intake Total 1175 ml Balance 1175 ml Intake Oral 1075 ml IV Total 100 ml # Voids 6 # Bowel Movements 1 Laboratory Labs Laboratory Tests Test 06/20/20 16:52 06/20/20 20:39 06/21/20 06:54 06/21/20 11:04 Glucose (Fingerstick) 169 mg/dL (70-99) 194 mg/dL (70-99) 201 mg/dL (70-99) 210 mg/dL (70-99) Physical Exam HEENT: Neck Supple W Full Motion Chest: Symmetric LUNGS: Other (diminished bases) Heart: RRR (SR) Abdomen: Soft N/T Extremities: No Calf Tenderness Neurology: alert, oriented, follow commands Assessment Assessment 1. Acute respiratory distress with pneumonia and COPD. EF and WM nml 2. Chest pain, atypical. AMI ruled out. EKG without significant acute changes 3. CAD s/p PCI/stent to the RCA. 4. H/o hyperlipidemia; LDL 9 5. Hypertension; mildly elevated 6. AECOPD 7. Diabetes, II: A1C 10.1 per PCP 8. Anxiety, panic attacks Recommendations Secondary prevention measures; ASA, statin, BB therapy Outpatient ischemic evaluation will defer with [facility] cardiology Justicifation of Admission Dx: Justifications for Admission: Justification of Admission Dx: Yes Acute COPD Exacerbation: Acute COPD Exacerbation АНДРЕЙ [employer] CLERK Jun 21, 2020 11:59
[2020-06-21] MEDS: ENOXAPARIN 40 MG/0.4 ML SYRINGE. SQ SCH (13:00)
[2020-06-21] MEDS ORDERED: LISI-130 PO (13:11)
[2020-06-21] MEDS ORDERED: METO25TA4 PO (13:11)
[2020-06-21] MEDS ORDERED: DOXY100T PO (13:11)
[2020-06-21] MEDS ORDERED: ASPI-886 PO (13:11)
[2020-06-21] MEDS ORDERED: BUSP10TA PO (13:11)
[2020-06-21] MEDS ORDERED: ATOR40TA59 PO (13:11)
--- NOTE | 2020-06-21 13:19 | PDOC3 ---
Discharge Summary Visit Information Date of Admission: Jun 18, 2020 Date of Discharge: Jun 21, 2020 Final Diagnosis Problems Medical Problems: (1) Shortness of breath Status: Acute Brief Hospital Course Allergies Allergies Coded Allergies Type Severity Reaction Last Updated Verified No Known Drug Allergies 06/17/20 No Vital Signs Vital Signs Date Time Temp Pulse Resp B/P (MAP) Pulse Ox O2 Delivery O2 Flow Rate FiO2 06/21/20 10:21 97.9 84 18 147/74 (98) 95 Room Air 97.9 06/20/20 20:00 2.0 Lab Results Laboratory Tests Test 06/19/20 14:22 06/19/20 16:15 06/19/20 16:47 06/19/20 20:57 Urine Collection Type Unknown Urine Color Yellow Urine Clarity Clear Urine pH 5.5 (<5.0-8.0) Urine Specific [place] 1.025 (1.000-1.030) Urine Protein Negative mg/dL (NEG-TRACE) Urine Glucose (UA) >=1000 mg/dL (NEG) Urine Ketones (Stick) Negative mg/dL (NEG) Urine Blood Negative (NEG) Urine Nitrite Negative (NEG) Urine Bilirubin Negative (NEG) Urine Urobilinogen Dipstick 0.2 mg/dL (0.2 mg/dL) Urine Leukocyte Esterase Negative (NEG) Urine RBC 0 /HPF (0-2) Urine WBC Occ /HPF (0-4) Urine Bacteria 0 /HPF (0-FEW) Urine Mucus Mod /LPF O2 Saturation 95 % (92-99) Arterial Blood pH 7.43 (7.35-7.45) Arterial Blood pCO2 at Patient Temp 42 mmHg (35-46) Arterial Blood pO2 at Patient Temp 78 mmHg (65-108) Arterial Blood HCO3 27 mmol/L (21-28) Arterial Blood Base Excess 3 mmol/L (-3-3) FiO2 2 lpm nc Glucose (Fingerstick) 244 mg/dL (70-99) 175 mg/dL (70-99) Test 06/20/20 07:38 06/20/20 07:40 06/20/20 11:27 06/20/20 16:52 Glucose (Fingerstick) 239 mg/dL (70-99) 236 mg/dL (70-99) 169 mg/dL (70-99) White Blood Count 13.2 x10^3/uL (4.0-11.0) Red Blood Count 4.45 x10^6/uL (4.30-5.70) Hemoglobin 13.0 g/dL (13.0-17.5) Hematocrit 38.9 % (39.0-53.0) Mean Corpuscular Volume 87 fL (79-100) Mean Corpuscular Hemoglobin 29 pg (25-35) Mean Corpuscular Hemoglobin Concent 33 g/dL (31-37) Red Cell Distribution Width 13.5 % (11.5-14.5) Platelet Count 331 x10^3/uL (140-400) Neutrophils (%) (Auto) 58 % (31-73) Lymphocytes (%) (Auto) 34 % (24-48) Monocytes (%) (Auto) 6 % (0-9) Eosinophils (%) (Auto) 2 % (0-3) Basophils (%) (Auto) 1 % (0-3) Neutrophils # (Auto) 7.7 x10^3/uL (1.8-7.7) Lymphocytes # (Auto) 4.4 x10^3/uL (1.0-4.8) Monocytes # (Auto) 0.7 x10^3/uL (0.0-1.1) Eosinophils # (Auto) 0.2 x10^3/uL (0.0-0.7) Basophils # (Auto) 0.1 x10^3/uL (0.0-0.2) Triglycerides Level 169 mg/dL (0-150) Cholesterol Level 74 mg/dL (0-200) LDL Cholesterol, Calculated 13 mg/dL (0-100) VLDL Cholesterol, Calculated 34 mg/dL (0-40) Non-HDL Cholesterol Calculated 47 mg/dL (0-129) HDL Cholesterol 27 mg/dL (40-60) Cholesterol/HDL Ratio 2.7 Test 06/20/20 20:39 06/21/20 06:54 06/21/20 11:04 Glucose (Fingerstick) 194 mg/dL (70-99) 201 mg/dL (70-99) 210 mg/dL (70-99) Laboratory Tests Test 06/20/20 16:52 06/20/20 20:39 06/21/20 06:54 06/21/20 11:04 Glucose (Fingerstick) 169 mg/dL (70-99) 194 mg/dL (70-99) 201 mg/dL (70-99) 210 mg/dL (70-99) Brief Hospital Course Mr. Massey is a 64 old male who presented with acute atypical chest pain suggestive of non-STEMI versus unstable angina, acute respiratory distress (likely undiagnosed congestive heart failure), and leukocytosis (concerning for atypical pneumonia). Consultations placed to cardiology. Prior to admission patient had stopped taking all his medications. He was initiated on lisinopril, beta-miguel, aspirin, and statin therapy. He was stable for discharge home with follow-up at the [facility]. Discharge Information Condition at Discharge: Improved Follow Up: Weeks Disposition/Orders: D/C to Home Scheduled Aspirin (Aspirin Ec) 81 Mg Tablet.dr, 81 MG PO DAILYWBKFT for CAD, #30 Ref 2 Prescribed by: DEV ALMEIDA MD on 06/21/20 1311 Atorvastatin Calcium (Atorvastatin Calcium) 40 Mg Tablet, 40 MG PO QHS for HLD, #30 Ref 2 Prescribed by: DEV ALMEIDA MD on 06/21/20 1311 Doxycycline Hyclate (Doxycycline Hyclate) 100 Mg Tablet, 100 MG PO BID for PNA, #3 Prescribed by: DEV ALMEIDA MD on 06/21/20 1311 Lisinopril (Lisinopril) 40 Mg Tablet, 20 MG PO DAILY for HTN, #30 Ref 2 Prescribed by: DEV ALMEIDA MD on 06/21/20 1311 Metoprolol Tartrate (Metoprolol Tartrate) 25 Mg Tablet, 12.5 MG PO BID for CHF, #60 Ref 2 Prescribed by: DEV ALMEIDA MD on 06/21/20 1311 Scheduled PRN Buspirone Hcl (Buspirone Hcl) 10 Mg Tablet, 10 MG PO BID PRN for ANXIETY, #60 Ref 2 Prescribed by: DEV ALMEIDA MD on 06/21/20 1311 Justicifation of Admission Dx: Justifications for Admission: Justification of Admission Dx: Yes Acute COPD Exacerbation: Acute COPD Exacerbation DEV ALMEIDA MD Jun 21, 2020 13:19
--- NOTE | 2020-06-21 14:43 | NUR ---
Discharge Note: ERNESTO WILLS Discharge instructions and discharge home medications reviewed with Patient and a copy given. All questions have been answered and understanding verbalized. [facility] Pt continually asking to be discharged with a prescription for Xanax. Hospitalist referred patient to primary care physician.
--- NOTE | 2020-06-21 18:33 | CARD ---
MR#: [id number] Date of Study: 06/20/2020 Ordering Physician: CONSTANTINE ESPITIA, Referring Physician: CONSTANTINE ESPITIA, Tech: Nadja Westfall APPROVED REPORT EXAM: Two-dimensional and M-mode echocardiogram with Doppler and color Doppler. Other Information Quality : FairHR: 87bpm Technically limited study due to body habitus, smoking INDICATION Dyspnea Cardiac Disease: CAD RISK FACTORS Hypertension Hyperlipidemia Diabetes Smoking 2D DIMENSIONS Left Atrium(2D)3.2 (1.6-4.0cm)IVSd1.3 (0.7-1.1cm) Aortic Root(2D)3.8 (2.0-3.7cm)LVDd5.6 (3.9-5.9cm) LVOT Diameter2.0 (1.8-2.4cm)PWd1.3 (0.7-1.1cm) LVDs3.0 (2.5-4.0cm)FS (%) 45.8 % SV116.9 ml Aortic Valve AoV Peak Willy.174.1cm/sAoV VTI36.8cm AO Peak GR.12.1mmHgLVOT VTI 27.96cm AO Mean GR.9mmHg Mitral Valve MV E Doihuydf760.2cm/sMV DECEL [id number] MV A Iooiwjcn81.3cm/sE/A Ratio1.1 TDI Lateral E' P. V2.40cm/sMedial E' P. V2.43cm/s E/Lateral E'45.5E/Medial E'44.9 Tricuspid Valve TR P. [id number]/sRAP [id number] TR Peak Gr.[id number] LEFT VENTRICLE The left ventricle is normal size. There is mild to moderate concentric left ventricular hypertrophy. The left ventricular systolic function is normal and the ejection fraction is within normal range. T he Ejection Fraction is 55-60%. There is normal LV segmental wall motion. Transmitral Doppler flow pa ttern is Grade I-abnormal relaxation pattern. RIGHT VENTRICLE The right ventricle is normal size. There is normal right ventricular wall thickness. The right ventr icular systolic function is normal. ATRIA The left atrium size is normal. The right atrium is mildly dilated. The interatrial septum is intact with no evidence for an atrial septal defect or patent foramen ovale as noted on 2-D or Doppler imagi ng. AORTIC VALVE The aortic valve is thickened but opens well. Doppler and Color Flow revealed trace aortic regurgitat ion. There is no significant aortic valvular stenosis. Calculated aortic valve area is 2.34 cm2 with maximum pressure gradient of 15 mmHg and mean pressure gradient of 9 mmHg. MITRAL VALVE The mitral valve is normal in structure and function. There is no evidence of mitral valve prolapse. There is no mitral valve stenosis. Doppler and Color-flow revealed trace mitral regurgitation. TRICUSPID VALVE The tricuspid valve is normal in structure and function. Doppler and Color Flow revealed no tricuspid valve regurgitation noted. There is no tricuspid valve stenosis. PULMONIC VALVE The pulmonic valve is not well visualized. Doppler and Color Flow revealed no pulmonic valvular regur gitation. GREAT VESSELS The aortic root is normal in size. The IVC was not visualized. PERICARDIAL EFFUSION There is no evidence of significant pericardial effusion. Critical Notification Critical Value: No <Conclusion> The left ventricle is normal size. The left ventricular systolic function is normal and the ejection fraction is within normal range. The Ejection Fraction is 55-60%. There is mild to moderate concentric left ventricular hypertrophy. Doppler and Color Flow revealed trace aortic regurgitation. There is no significant aortic valvular stenosis. Calculated aortic valve area is 2.34 cm2 with maximum pressure gradient of 15 mmHg and mean pressure gradient of 9 mmHg. Doppler and Color-flow revealed trace mitral regurgitation. Doppler and Color Flow revealed no tricuspid valve regurgitation noted. Signed by : Constantine Espitia MD Electronically Approved : 06/21/2020 18:33:07
[2020-06-21] MEDS ORDERED: LACTOBACILLUS RHAMNOSUS GG 1 CAPSULE. PO SCH (21:00)
== END 2020-06-21 14:00 | disposition home or self-care (01) | DRG 193 ==
LOC: ER 23:09 → ED HOLD 06-18 02:45 → 2 NORTH 06-18 03:35
PROVIDERS: ADMIT Internal Medicine; ATTEND Internal Medicine
DX: J18.9 Pneumonia, unspecified organism (principal); J96.01 Acute respiratory failure with hypoxia; J44.0 Chronic obstructive pulmonary disease with (acute) lower respiratory infection; J44.1 Chronic obstructive pulmonary disease with (acute) exacerbation; D72.828 Other elevated white blood cell count; E11.9 Type 2 diabetes mellitus without complications; E78.00 Pure hypercholesterolemia, unspecified; E78.5 Hyperlipidemia, unspecified; E83.41 Hypermagnesemia; F17.210 Nicotine dependence, cigarettes, uncomplicated; F41.0 Panic disorder [episodic paroxysmal anxiety]; I25.10 Atherosclerotic heart disease of native coronary artery without angina pectoris; K76.0 Fatty (change of) liver, not elsewhere classified; Z79.82 Long term (current) use of aspirin; Z79.899 Other long term (current) drug therapy; Z91.14 Patient's other noncompliance with medication regimen; Z95.5 Presence of coronary angioplasty implant and graft; I25.2 Old myocardial infarction; I50.9 Heart failure, unspecified; I11.0 Hypertensive heart disease with heart failure
CPT/HCPCS: 36415; 71045; 71250; 80048; 80053; 80061; 81001; 82553; 82805; 82962; 83036; 83690; 83735; 83880; 84100; 84484; 85025; 85379; 93005; 93306; 94618; 94640; 94760; 96360; 96361; 96372; 99285; J1650; J1815; J3490; J7030; J7060; G0378; J7613; J7626; Q0163